=== PATIENT | female | born 2000 | race Caucasian/White ===

== ENCOUNTER 2021-10-08 07:29 | Emergency (ER) | payer MEDICAID, SELFPAY ==
[2021-10-08 07:35] VITALS: BP 127/89; PULSE 75; RESP 16; TEMP 36.2; O2SAT 100
[2021-10-08] MEDS: Ondansetron 4 MG/2 ML VIAL IVP (08:10)
[2021-10-08 08:11] LABS: Abs Immature Grans 0.08 10^3/uL (0.0-0.06); Absolute Basophil Count 0.04 10^3/uL (0.0-0.2); Absolute Monocyte Count 0.84 10^3/uL (0.1-0.8); Basophils % 0.2; HGB 14.5 g/dL (11.2-15.7); Immature Grans % 0.4; MCH 29.4 pg (27.0-33.0); MCHC 32.2 % (32.0-36.0); MCV 91.3 fL (80-95); MPV 12.9 fL (8.0-11.0); Monocytes % 4.2; Neutrophils % 88.2; Platelet Count 222 10^3/uL (130-400); RBC 4.93 10^6/uL (3.93-5.22); RDW 12.8 % (11.7-14.6); RDW-SD 43.3 fL; WBC 20.07 10^3/uL (4.4-10.8)
--- NOTE | 2021-10-08 08:14 | NUR.NOTE ---
Nursing Note: Referral given to Care Management needs PCP, establish care, routine follow up. Nica burns
[2021-10-08] MEDS: Normal Saline 1,000 ML 1000 ML IV ×2 (08:18→09:20)
--- NOTE | 2021-10-08 08:19 | ED.GENADUL_ITS ---
Discharge Plan Disposition Patient Disposition: HOME Condition: Improving Discharge Details Clinical Impression: Abdominal pain, Nausea & vomiting Primary Care Provider: [facility] ED Provider: Frank Swenson Home Meds and New Rx's Prescriptions: New ondansetron 4 mg tablet,disintegrating 4 mg PO TID PRN3 Days Qty: 10 0RF No Action medroxyprogesterone [Depo-Provera] 150 MG/ML suspension 150 mg IM Q3M 0RF Label Comments: has shot about 2 weeks ago Discharge Instructions Instructions: Hypokalemia (ED), Acute Nausea and Vomiting (ED), Abdominal Pain (ED) Additional Instructions: Your work-up today reveals low potassium, and elevated white count, and your CT shows some periportal edema. I do have you placed on the care management list help expedite outpatient primary care follow-up and I have a call out to our surgical team to discuss your case today you have a request to be discharged in the meantime. Zofran as directed. Clear liquid diet, advance as tolerated. You have told me you plan to leave. Diet bananas which can be a nice bland food as well as high in potassium. Please watch for new or worsening symptoms and return to the ER for any concerns. Lastly, I do recommend reaching out to our surgical team tomorrow to discuss your ER visit and need for outpatient r eevaluation Referrals: Deanna Chen DO [OSTEOPATHIC DOCTOR] - Medical Decision Making 21-year-old female, denies significant past medical history, smokes marijuana daily, presents to the ER reporting diffuse abdominal cramping, nausea, vomiting, diarrhea that began around 230 this morning. She reports that she has had similar intermittent episodes over the past 2-3 years and has had multiple visits to both [facility] and [facility] for the same. She denies bad food exposure, recent sick contacts, fever, neck pain, chest pain, shortness of breath, blood in her vomitus, coffee-ground emesis, back pain, vaginal bleeding or discharge, dysuria, hematuria, focal weakness. Clinically she appears well, nontoxic, mucous membranes slightly dry. Abdomen is soft, nontender, certainly nonsurgical. Plan is to obtain IV access, give IV fluids, Zofran, obtain routine screening laboratory values and reassess. Laboratory values reveal leukocytosis of 20.07. While this very well could be secondary to excessive nausea and vomiting, certainly raises suspicion for other etiology. I reviewed her record and did not see any imaging here at our facility. She states that she has been seen multiple times both at [facility] and [facility] but has never had CT imaging. She is agreeable to pursuing CT imaging of her abdomen pelvis today for further evaluation. Potassium of 2.9. Will obtain EKG, give both IV and p.o. potassium. She reports continuation of nausea, will give [address] imaging reveals periportal edema, recommend right upper quadrant ultrasound. Discussed these findings with the patient, she is agreeable to ultrasound. Reports that her nausea had initially improved with the Reglan but now is returning, requesting additional IV medication but also requesting her IV be removed as it is bothering her. She will be given 25 IV Phenergan and we will leave the IV in until she can no longer tolerate it. She denies history of hepatitis, IV drug use. Patient is telling me that this is a very typical presentation for her ongoing abdominal pain, nausea and vomiting. Typically her symptoms are not resolved completely when she presents to the ER, she is to go home, eat bananas, and lay in a hot bath. I do question if there could be some degree of cannabis hyperemesis syndrome but certainly given her leukocytosis, periportal edema, etc. I am concerned about other potential etiologies Ultrasound was obtained, mild hepatomegaly. No evidence of cholelithiasis, biliary ductal dilatation or cholecystitis. 0.2 cm gallbladder polyp. Patient reports general improvement and requesting discharge her IV to be removed. I did discuss my concern with the patient, I have a call out to our surgical team to discuss her overall presentation, but again she is requesting her IV be removed and that she be discharged. Patient is afebrile, abdomen is nonacute appearing, no clear source of infection that would require oral antibiotics. Concern for her overall presentation and need for prompt outpatient follow-up. I have discussed my concerns with the patient, she understands. I have placed her on both the primary care and surgical list to help expedite outpatient follow-up. I received a call back from Dr. Chen, surgery. She to agrees that the patient has a concerning presentation, recommends obtaining a chest x-ray, likely needs outpatient HIDA scan. She understands the patient does not wanting to stay in the ER any longer and because of this is recommending prompt outpatient follow-up in her surgical clinic. I discussed this with the patient, she is unwilling to await a chest x- ray again requesting discharge. She does understand the risks of leaving without completed work-up. Clinically she appears well, hemodynamically stable. She has no additional questions or concerns and once again is requesting discharge. Strict discharge and return precautions were provided. A pre scription for Lucia was also provided This documentation was generated using [employer] system, please disregard any oddities of phrase or misspellings. Medical Records Medical records reviewed: Yes I reviewed the patient's medical records. Imaging Data Radiologic Study: Attestation: I personally reviewed and interpreted this imaging study as follows: Imaging: CT Scan Radiologist's impression: Exam(s) CT ABDOMEN PELVIS W EXAM: CT ABDOMEN PELVIS W CLINICAL HISTORY: abd pain n/v/d, wbc 20 TECHNIQUE: Imaging Protocol: Axial computed tomography images with coronal and sagittal reformatted images were created and reviewed CONTRAST MATERIAL: Intravenous: Omnipaque 350 Contrast volume:100 mL Oral: No COMPARISON: No exams were available for comparison FINDINGS: ABDOMEN: Lung Bases: Normal where visualized. Liver: Normal density. No measurable mass. There is diffuse periportal edema. The liver measures 19.2 cm long. Portal, Superior Mesenteric, and Splenic Veins: Unremarkable. Gallbladder and Biliary Tract: No radiodense calculus or dilation. There is a small amount of fluid seen around the gallbladder. Pancreas: Normal density, no abnormal calcifications or inflammatory process. Spleen: Normal. Adrenals: No masses seen. Kidneys: Normal size, contour and axis. No radiodense stones or obstructive uropathy. No masses seen. Abdominal Aorta: Abdominal portion non-dilated. Bowel: No obstruction or bowel wall thickening. Appendix is unremarkable. Peritoneal Cavity: There is a trace amount of fluid in the pelvis which may be physiologic. No free air. Lymph Nodes: Within normal limits. Bones: Within normal limits for the patient's age. Soft Tissues: Unremarkable. PELVIS: Bladder: Symmetric distention, no gross wall thickening. Reproductive Organs: Unremarkable as visualized. There is an IUD which appears in good position. Lymph Nodes: Within normal limits. Bones: Within normal limits for the patient's age. IMPRESSION: 1. Periportal edema. Differential considerations include hepatitis, cholangitis or possibly acute pyelonephritis. Ultrasound of the right upper quadrant is recommended for further evaluation. 2. Hepatomegaly. 3. Normal appendix. No evidence of nephrolithiasis or hydronephrosis. 4. Results of this exam have been verbally communicated with provider. Radiologic Study #2: Attestation: I personally reviewed and interpreted this imaging study as follows: Imaging: Ultrasound Radiologist's impression: Exam(s) US ABDOMEN LIMITED EXAM: US ABDOMEN LIMITED CLINICAL HISTORY: RUQ, 20 wbc, pain, ? gb disease TECHNIQUE: Ultrasound abdomen performed using standard protocol. COMPARISON: CT CT ABDOMEN PELVIS W from 10/08/2021 FINDINGS: PANCREAS: Normal where visualized. LIVER: Normal. Hepatopedal flow in the Portal Vein. The liver measures in 18.1 length. GALLBLADDER: No evidence of cholelithiasis. No evidence of wall thickening. No pericholecystic fluid identified. There is a 0.2 cm immobile echogenic nodule along the wall of the gallbladder likely reflecting a polyp. BILIARY SYSTEM: Common bile duct measures < 7 mm. No intrahepatic biliary ductal dilation. MCKEON'S SIGN: Negative. RIGHT KIDNEY: Kidney is normal in size. No evidence of renal calculi. No evidence of hydronephrosis. No renal mass or cyst identified. ASCITES: None seen. IMPRESSION: 1. Mild hepatomegaly. 2. No evidence of cholelithiasis, biliary ductal dilatation or acute cholecystitis. 3. 0.2 cm gallbladder polyp. 4. Results of this exam have been verbally communicated with provider. Lab Data Lab results reviewed: Yes I reviewed the patient's lab results. Labs: Laboratory Tests Range/Units 10/08/21 10/08/21 10/08/21 07:46 07:46 09:20 WBC (4.4-10.8) 10^3/uL 20.07 H RBC (3.93-5.22) 10^6/uL 4.93 Hgb (11.2-15.7) g/dL 14.5 Hct (36.0-46.0) % 45.0 MCV (80-95) fL 91.3 MCH (27.0-33.0) pg 29.4 MCHC (32.0-36.0) % 32.2 RDW (11.7-14.6) % 12.8 Plt Count (130-400) 10^3/uL 222 MPV (8.0-11.0) fL 12.9 H Immature Gran % 0.4 Neutrophils % 88.2 Lymphocytes % 7.0 Monocytes % 4.2 Eosinophils % 0.0 Basophils % 0.2 Nucleated RBC % (0.0-0.3) % 0.0 Absolute Neutrophils (1.2-6.7) 10^3/uL 17.70 H Absolute Lymphocytes (1.2-3.4) 10^3/uL 1.40 Absolute Monocytes (0.1-0.8) 10^3/uL 0.84 H Absolute Eosinophils (0.0-0.7) 10^3/uL 0.00 Absolute Basophils (0.0-0.2) 10^3/uL 0.04 Sodium (136-145) mmol/L 139 Potassium (3.5-5.1) mmol/L 2.9 L Chloride (98-107) mmol/L 103 Carbon Dioxide (21.0-32.0) mmol/L 24.5 Anion Gap (3-11) mmol/L 11.5 H BUN (7-18) mg/dL 12 Creatinine (0.55-1.02) mg/dL 1.0 Estimated GFR/1.73 m2 (mL/min/1.73m2) >= 60.00 Glucose (74-106) mg/dL 163 H Calcium (8.5-10.1) mg/dL 8.9 Total Bilirubin (0.2-1.0) mg/dL 0.7 AST (15-37) U/L 13 L ALT (14-59) U/L 21 Alkaline Phosphatase (46-116) U/L 62 Total Protein (6.4-8.2) g/dL 7.5 Albumin (3.4-5.0) g/dL 4.3 Lipase (73-393) U/L 87 Urine Color (Yellow) Yellow Urine Clarity (Clear) Clear Urine pH (5-8) 8.5 H Ur Specific Union (1.005-1.025) 1.020 Urine Protein (Negative) mg/dL Negative Urine Ketones (Negative) mg/dL Negative Urine Blood (Negative) Negative Urine Nitrite (Negative) Negative Urine Bilirubin (Negative) Negative Urine Urobilinogen (Up TO 0.2) EU/dL 0.2 Ur Leukocyte Esterase (Negative) Negative Urine Glucose (Negative) mg/dL Negative ECG Data Attestation: I personally reviewed and interpreted this ECG (s) as follows: Interpretation: Please see official report by Dr. Duran. Sinus bradycardia, ventricular rate of 47, no STEMI. HPI General Mode of arrival: ambulatory . Date/Time Provider Initiated Documentation: 10/08/21 07:56 . Limitations to Documentation: no limitations . Information obtained by: patient . History of Present Illness 21 year old F presents to the emergency department with the chief complaint of abd pain, n/v/d, described as moderate, with intensity rated at 6. Quality is described as other (cramping), and is localized to the abdomen. Patient reports no radiation. Patient started experiencing this hour(s) (6) and it has been constant. improves with No relieving factors improve symptom(s), No exacerbating factors reported . Patient notes nausea/vomiting; denies chest pain, cough, fever/chills, headaches, rash and shortness of breath. Patient did receive the following treatments prior to arrival, none Related Data Home Medications Medication Instructions Recorded Confirmed medroxyprogesterone 150 mg/mL 150 mg IM Q3M 12/05/16 12/05/16 intramuscular suspension (Depo-Provera) ondansetron 4 mg disintegrating 4 mg PO TID PRN 3 Days #10 tab 10/08/21 tablet Previous Rx's Medication Instructions Recorded ondansetron 4 mg disintegrating 4 mg PO TID PRN 3 Days #10 tab 10/08/21 tablet Allergies Allergy/AdvReac Type Severity Reaction Status Date / Time No Known Allergies Allergy Unverified 12/05/16 12:04 General Stated Complaint: Abd Prob ERIK: 3 Review of Systems Constitutional Constitutional: Denies fever(s) and Denies weakness Cardiovascular Cardiovascular: Denies chest pain and Denies dyspnea Respiratory Respiratory: Denies cough and Denies dyspnea Gastrointestinal Gastrointestinal: Reports abdominal pain, Denies melena, Denies hematochezia, Reports constipation, Reports diarrhea, Reports nausea and Reports vomiting Genitourinary Genitourinary: Denies abnormal vaginal bleeding, Denies dysuria and Denies vaginal discharge Musculoskeletal Musculoskeletal: Denies back pain Integumentary/Breasts Skin/Breast: Denies rash Neurologic Neurologic: Denies weakness PFSH All Active Problems (Updated 10/08/21 @ 11:25 by YENI Turner) Abdominal pain (Acute) Nausea & vomiting (Acute) Social History Smoking/Tobacco Use Status: Current every day Tobacco Type: cigarettes Tobacco: How many years used: 3 Smoking risk assessment performed?: Yes Alcohol Intake: current Alcohol Intake frequency: a few times a month Alcohol type: beer, wine and hard liquor Drug use: Daily Substance use type: marijuana Do you feel safe at home: Yes Do you feel safe in your relationship?: Yes Exam Const General: cooperative, healthy appearing, comfortable, no acute distress and other (Occasional dry heave) Orientation: alert and awake [facility] Head: normal to inspection, normocephalic and atraumatic Mouth: moist mucous membranes abnormal (Slightly dry) Eyes General: appearance normal, both eyes and all related structures Conjunctivae: conjunctivae normal Neck Neck: normal visual inspection, full ROM, meningismus present, trachea midline and supple Resp Effort & Inspection: normal respiratory effort and able to speak in complete sentences Auscultation: clear to auscultation bilaterally Cardio Rate: regular rate Rhythm: regular rhythm GI Inspection: normal to inspection Palpation: soft, not firm, no guarding, no pulsatile masses and nontender Auscultation: normal bowel sounds Back/Spine/Pelvis Back: No back tenderness Skin General skin exam: no rashes or lesions noted Neuro General: patient alert, patient awake, moves all extremities and no focal motor deficits Cognition: normal cognition Speech: speech normal Gait: normal gait Sensory Exam: no sensory deficits noted Psych Appearance: grossly normal Mental Status: mental status grossly normal Course Vital Signs Vital signs: Vital Signs Temperature 36.2 C L 10/08/21 07:35 Pulse 75 10/08/21 07:35 Respiratory Rate 16 10/08/21 07:35 Blood Pressure 127/89 10/08/21 07:35 Pulse Oximetry 100 10/08/21 07:35 Temperature 36.2 C L 10/08/21 07:35 Pulse 75 10/08/21 07:35 Respiratory Rate 16 10/08/21 07:35 Respiratory Effort 10/08/21 07:41 Blood Pressure 127/89 10/08/21 07:35 Pulse Oximetry 100 10/08/21 07:35 Oxygen Delivery Method Room Air 10/08/21 07:35 Oxygen Flow Rate 0 10/08/21 07:35 Pain Level 10 10/08/21 08:10 Lab/Test Results Lab/Test Results: Laboratory Tests Range/Units 10/08/21 07:46 WBC (4.4-10.8) 10^3/uL 20.07 H RBC (3.93-5.22) 10^6/uL 4.93 Hgb (11.2-15.7) g/dL 14.5 Hct (36.0-46.0) % 45.0 MCV (80-95) fL 91.3 MCH (27.0-33.0) pg 29.4 MCHC (32.0-36.0) % 32.2 RDW (11.7-14.6) % 12.8 Plt Count (130-400) 10^3/uL 222 MPV (8.0-11.0) fL 12.9 H Immature Gran % 0.4 Neutrophils % 88.2 Lymphocytes % 7.0 Monocytes % 4.2 Eosinophils % 0.0 Basophils % 0.2 Nucleated RBC % (0.0-0.3) % 0.0 Absolute Neutrophils (1.2-6.7) 10^3/uL 17.70 H Absolute Lymphocytes (1.2-3.4) 10^3/uL 1.40 Absolute Monocytes (0.1-0.8) 10^3/uL 0.84 H Absolute Eosinophils (0.0-0.7) 10^3/uL 0.00 Absolute Basophils (0.0-0.2) 10^3/uL 0.04
[2021-10-08 08:22] LABS: ALT 21 U/L (14-59); AST 13 U/L (15-37); Albumin 4.3 g/dL (3.4-5.0); Alkaline Phosphatase 62 U/L (46-116); Anion Gap 11.5 mmol/L (3-11); BUN 12 mg/dL (7-18); Bilirubin, Total 0.7 mg/dL (0.2-1.0); CO2 24.5 mmol/L (21.0-32.0); Calcium 8.9 mg/dL (8.5-10.1); Chloride 103 mmol/L (98-107); Glucose 163 mg/dL (74-106); Lipase 87 U/L (73-393); Sodium 139 mmol/L (136-145); Total Protein 7.5 g/dL (6.4-8.2)
[2021-10-08 08:29] LABS: Potassium 2.9 mmol/L (3.5-5.1)
--- NOTE | 2021-10-08 08:30 | RT.EKG_ITS ---
APPROVED REPORT Exam: Resting ECG Reason for Exam: Hypokalemia Patient Location: E HR:47 bpm ECG Measurements Heart Rate 47 AXIS OH 149 P 80 QRSd 78 QRS 83 QT 474 T 83 QTc 418 Conclusion Sinus bradycardia...rate< 60
[2021-10-08 08:36] VITALS: BP 109/97; PULSE 68; TEMP 36.3; O2SAT 100
[2021-10-08] MEDS: POTASSIUM CHLORIDE 10 MEQ/100 ML BAG 100 MEQ IVPB (08:42)
[2021-10-08] MEDS: Potassium Chloride 20 MEQ TABCR 40 MEQ PO (08:43)
--- NOTE | 2021-10-08 08:45 | DI.CT_ITS ---
Exam(s) CT ABDOMEN PELVIS W EXAM: CT ABDOMEN PELVIS W CLINICAL HISTORY: abd pain n/v/d, wbc 20 TECHNIQUE: Imaging Protocol: Axial computed tomography images with coronal and sagittal reformatted images were created and reviewed CONTRAST MATERIAL: Intravenous: Omnipaque 350 Contrast volume:100 mL Oral: No COMPARISON: No exams were available for comparison FINDINGS: ABDOMEN: Lung Bases: Normal where visualized. Liver: Normal density. No measurable mass. There is diffuse periportal edema. The liver measures 19. 2 cm long. Portal, Superior Mesenteric, and Splenic Veins: Unremarkable. Gallbladder and Biliary Tract: No radiodense calculus or dilation. There is a small amount of fluid s een around the gallbladder. Pancreas: Normal density, no abnormal calcifications or inflammatory process. Spleen: Normal. Adrenals: No masses seen. Kidneys: Normal size, contour and axis. No radiodense stones or obstructive uropathy. No masses seen. Abdominal Aorta: Abdominal portion non-dilated. Bowel: No obstruction or bowel wall thickening. Appendix is unremarkable. Peritoneal Cavity: There is a trace amount of fluid in the pelvis which may be physiologic. No free air. Lymph Nodes: Within normal limits. Bones: Within normal limits for the patient's age. Soft Tissues: Unremarkable. PELVIS: Bladder: Symmetric distention, no gross wall thickening. Reproductive Organs: Unremarkable as visualized. There is an IUD which appears in good position. Lymph Nodes: Within normal limits. Bones: Within normal limits for the patient's age. IMPRESSION: 1. Periportal edema. Differential considerations include hepatitis, cholangitis or possibly acute py elonephritis. Ultrasound of the right upper quadrant is recommended for further evaluation. 2. Hepatomegaly. 3. Normal appendix. No evidence of nephrolithiasis or hydronephrosis. 4. Results of this exam have been verbally communicated with provider. RADIATION DOSE DELIVERED: 858.16mGy.cm Total DLP DATA REPOSITORY: All CT scans at this facility are submitted to the National Radiology Data Registry (NRDR) Dose Index Registry (DIR) with the [employer] (ACR). RADIATION OPTIMIZATION: All CT scans at this facility use at least one of these dose optimization te chniques: automated exposure control; mA and/or kV adjustment per patient size (includes targeted exa ms where dose is matched to clinical indication); or iterative reconstruction.
[2021-10-08] MEDS: Metoclopramide 10 MG/2 ML VIAL IVP (08:56)
[2021-10-08 09:30] LABS: Bilirubin Negative (Negative); Blood Negative (Negative); Clarity Clear (Clear); Glucose Negative (Negative); Ketones Negative (Negative); Leukocyte Esterase Negative (Negative); Nitrite Negative (Negative); Urobilinogen 0.2 EU/dL (Up TO 0.2); pH 8.5 (5-8)
[2021-10-08] MEDS: Omnipaque 350 MG/ML 100 ML BTL IJ (09:42)
--- NOTE | 2021-10-08 10:00 | DI.US_ITS ---
Exam(s) US ABDOMEN LIMITED EXAM: US ABDOMEN LIMITED CLINICAL HISTORY: RUQ, 20 wbc, pain, ? gb disease TECHNIQUE: Ultrasound abdomen performed using standard protocol. COMPARISON: CT CT ABDOMEN PELVIS W from 10/08/2021 FINDINGS: PANCREAS: Normal where visualized. LIVER: Normal. Hepatopedal flow in the Portal Vein. The liver measures in 18.1 length. GALLBLADDER: No evidence of cholelithiasis. No evidence of wall thickening. No pericholecystic fluid identified. There is a 0.2 cm immobile echogenic nodule along the wall of the gallbladder likely refl ecting a polyp. BILIARY SYSTEM: Common bile duct measures < 7 mm. No intrahepatic biliary ductal dilation. MCKEON'S SIGN: Negative. RIGHT KIDNEY: Kidney is normal in size. No evidence of renal calculi. No evidence of hydronephrosis. No renal mass or cyst identified. ASCITES: None seen. IMPRESSION: 1. Mild hepatomegaly. 2. No evidence of cholelithiasis, biliary ductal dilatation or acute cholecystitis. 3. 0.2 cm gallbladder polyp. 4. Results of this exam have been verbally communicated with provider. DATA REPOSITORY:
[2021-10-08 10:32] VITALS: BP 131/93; PULSE 76; RESP 16; TEMP 36.5; O2SAT 98
[2021-10-08 11:21] VITALS: BP 128/82; PULSE 69; RESP 16; TEMP 36.6; O2SAT 98
[2021-10-08 11:38] VITALS: BP 128/82; PULSE 69; RESP 16; TEMP 36.6; O2SAT 98
--- NOTE | 2021-10-08 12:03 | NUR.NOTE ---
Nursing Note: [facility] for abd pain, periportal edema, if possible by end of the week. Consulted with Dr Chen. Ella Liang
[2021-10-09 11:33] LABS: Hepatitis A Antibody IgM Negative (Negative); Hepatitis B Core Antibody Negative (Negative); Hepatitis B surface Ag Negative (Negative); Hepatitis C Ab w Rflx HCV PCR Negative (Negative)
== END 2021-10-08 11:41 | disposition home or self-care (01) ==
PROVIDERS: Emergency Provider Physician Assistant; PCP Pediatrics
DX: R11.2 Nausea with vomiting, unspecified (principal); R10.9 Unspecified abdominal pain; R19.7 Diarrhea, unspecified; D72.829 Elevated white blood cell count, unspecified; R16.0 Hepatomegaly, not elsewhere classified; Z53.29 Procedure and treatment not carried out because of patient's decision for other reasons
CPT/HCPCS: 36415; 80053; 81025; 83690; 86704; 86709; 86803; 87340; 93005; 96361; 96365; 96367; 96375; 99285; 74177; 76705; 81003; 85025; 93010; 99284; J2405; J2765; J3480; J3490

== ENCOUNTER → 2021-10-25 00:47 | Outpatient (CLI) | payer MEDICAID, SELFPAY | PROVIDERS: PCP Pediatrics; Visit Provider Surgery ==

== ENCOUNTER 2022-10-20 19:04 | Emergency (ER) | payer MEDICAID, SELFPAY ==
--- NOTE | 2022-10-20 19:15 | DI.RAD_ITS ---
Exam(s) XR HAND RT COMPLETE EXAM: XR HAND RT COMPLETE CLINICAL HISTORY: 5th mcp injury, fall. TECHNIQUE: 2D digital imaging was performed. COMPARISON: No exams were available for comparison FINDINGS: 3 views There is an acute oblique fracture in the proximal aspect base the 5th metacarpal. The fracture line approaches the articular surface of the articulation between the base of the 5th metacarpal and the hamate. No other fractures identified. No osseous lesions. No radiopaque foreign body. There is s ome overlying soft tissue swelling. IMPRESSION: Acute oblique fracture through the proximal diaphysis/base of the 5th metacarpal. Mild displacement. DATA REPOSITORY: RADIATION DOSE DELIVERED:
[2022-10-20 19:16] VITALS: BP 105/71; PULSE 67; RESP 16; TEMP 36.6; O2SAT 97
--- NOTE | 2022-10-20 20:06 | W.ED.GENAD ---
Discharge Plan Disposition Patient Disposition: Home Discharge Details Clinical Impression: Boxer's fracture Primary Care Provider: None,None ED Provider: Paris Ramos Home Meds and New Rx's Prescriptions: Continued medroxyprogesterone [Depo-Provera] 150 MG/ML suspension 150 mg IM Q3M Patient Comments: has shot about 2 weeks ago Discharge Instructions Additional Instructions: Please take care of the splint to keep it dry, follow-up with orthopedics Ibuprofen and Tylenol as needed for pain Ice as needed, elevation when you are at rest Return earlier should you have new or worsening complaints Referrals: Alonso Contreras MD [ [facility] STAFF PHYSICIAN] - Medical Decision Making 22-year-old female presents with right hand injury, fifth metacarpal fracture noted approximately, angulated Ortho-Glass splint applied Motrin Tylenol as needed for pain Orthopedic referral supplied Return precautions reviewed and patient expressed understanding HPI General Date/Time Provider Initiated Documentation: 10/20/22 19:26. HPI Narrative: This 22-year-old female presents with report of right hand injury. She reportedly tripped walking the dog yesterday, landing on her right hand. Denies any additional injuries. States it swollen and the pain has been persistent since onset. Denies any additional injuries. Related Data Home Medications Medication Instructions Recorded Confirmed medroxyprogesterone 150 mg/mL 150 mg IM Q3M 12/05/16 10/20/22 intramuscular suspension (Depo-Provera) Allergies Allergy/AdvReac Type Severity Reaction Status Date / Time No Known Allergies Allergy Unverified 10/20/22 19:19 General Stated Complaint: Orthopedic ERIK: 4 PFSH All Active Problems (Updated 10/20/22 @ 20:08 by YENI Sanders) Boxer's fracture (Acute) Social History Smoking/Tobacco Use Status: Current every day Tobacco Type: cigarettes Tobacco: How many years used: 3 Smoking risk assessment performed?: Yes Alcohol Intake: current Alcohol Intake frequency: a few times a month Alcohol type: beer, wine and hard liquor Drug use: Daily Substance use type: marijuana Do you feel safe at home: Yes Do you feel safe in your relationship?: Yes Course Right hand with swelling and deformity noted overlying the dorsal aspect on the fifth metacarpal, neurovascularly intact, no tenderness to wrist Vital Signs Vital signs: Vital Signs Temperature 36.6 C 10/20/22 19:16 Pulse 67 10/20/22 19:16 Respiratory Rate 16 10/20/22 19:16 Blood Pressure 105/71 10/20/22 19:16 Pulse Oximetry 97 10/20/22 19:16 Temperature 36.6 C 10/20/22 19:16 Temperature Source Oral 10/20/22 19:16 Pulse 67 10/20/22 19:16 Respiratory Rate 16 10/20/22 19:16 Respiratory Effort Normal, Non-Labored 10/20/22 19:19 Blood Pressure 105/71 10/20/22 19:16 Blood Pressure Position Sitting 10/20/22 19:16 Pulse Oximetry 97 10/20/22 19:16 Oxygen Delivery Method Room Air 10/20/22 19:16 Oxygen Flow Rate 0 10/20/22 19:16 Pain Level 10 10/20/22 19:20 Comment 03/24 when she bumps it. 10/20/22 19:16 Procedures Orthopedic Splinting/Casting Injury #1: Additional Comments: Ulnar gutter 3 inch splint was applied with Ortho-Glass without incident, neurovascularly intact pre and postprocedure
--- NOTE | 2022-10-20 20:16 | DI.VRAD_ITS ---
PROCEDURE INFORMATION: Exam: XR Right Hand Exam date and time: 10/20/2022 7:43 PM Age: 22 years old Clinical indication: Other: 5th mcp injury, fall TECHNIQUE: Imaging protocol: Radiologic exam of the right hand. Views: 3 or more views. COMPARISON: No relevant prior studies available. FINDINGS: Bones/joints: There is an oblique acute fracture through the proximal shaft and base of the right 5th metacarpal. No additional acute fracture or dislocation is seen in the right hand. Soft tissues: There is mild soft tissue swelling along the ulnar margin of the hand. IMPRESSION: Acute oblique fracture through the proximal shaft and base of the right 5th metacarpal. Dictated and Authenticated by: Jaguar Boyer MD. Ordering:ANNABEL Toledo MD
== END 2022-10-20 20:15 | disposition home or self-care (01) ==
PROVIDERS: Emergency Provider Physician Assistant
DX: S62.336A Displaced fracture of neck of fifth metacarpal bone, right hand, initial encounter for closed fracture (principal); W01.0XXA Fall on same level from slipping, tripping and stumbling without subsequent striking against object, initial encounter; Y93.K1 Activity, walking an animal
CPT/HCPCS: 29125; 99283; 73130

== ENCOUNTER 2022-10-30 09:16 | Outpatient (CLI) | payer MEDICAID, SELFPAY ==
--- NOTE | 2022-10-30 08:30 | DI.RAD_ITS ---
Exam(s) XR HAND RT COMPLETE EXAM: XR HAND RT COMPLETE CLINICAL HISTORY: f/u Left 5th metacarpal fx. TECHNIQUE: 2D digital imaging was performed of the right hand. Three images were obtained. AP, late ral and oblique views were obtained. COMPARISON: CR,XR XR HAND RT COMPLETE from 10/20/2022 FINDINGS: BONES: There has been no change in alignment of the fracture involving the proximal right 5th metacar pal. The fracture line is still visualized. No new fracture is seen. No bony destructive lesion is seen. JOINTS: No dislocation present. SOFT TISSUE: Normal. IMPRESSION: Stable 5th metacarpal fracture. DATA REPOSITORY: RADIATION DOSE DELIVERED:
== END 2022-10-30 09:17 | disposition home or self-care (01) ==
LOC: DIORS 09:17
PROVIDERS: Visit Provider Physician Assistant
DX: S62.336D Displaced fracture of neck of fifth metacarpal bone, right hand, subsequent encounter for fracture with routine healing (principal); X58.XXXD Exposure to other specified factors, subsequent encounter
CPT/HCPCS: 73130

== ENCOUNTER 2022-11-28 09:06 | Outpatient (CLI) | payer MEDICAID, SELFPAY ==
--- NOTE | 2022-11-28 08:15 | DI.RAD_ITS ---
Exam(s) XR WRIST RT COMPLETE EXAM: XR WRIST RT COMPLETE CLINICAL HISTORY: RIGHT WRIST PAIN. TECHNIQUE: 2D digital imaging was performed. COMPARISON: No exams were available for comparison FINDINGS: 3 views No evidence of fracture nor dislocation wrist.. No significant ulnar variance. No osseous lesions. Bone density normal. More distally there is fracture in the proximal aspect of the 5th metacarpal noted. See separate rep ort. IMPRESSION: Fracture again noted at the proximal aspect of the 5th metacarpal. DATA REPOSITORY: RADIATION DOSE DELIVERED:
--- NOTE | 2022-11-28 08:15 | DI.RAD_ITS ---
Exam(s) XR HAND RT COMPLETE EXAM: XR HAND RT COMPLETE CLINICAL HISTORY: f/u R BOXER'S FRACTURE. TECHNIQUE: 2D digital imaging was performed. COMPARISON: CR XR HAND RT COMPLETE from 10/30/2022 FINDINGS: 3 views Again noted is the comminuted appearing fracture in the proximal half of the 5th metacarpal. Fractur e lines are still evident but there does not appear to be significant further displacement. No addit ional fractures identified. IMPRESSION: As above. DATA REPOSITORY: RADIATION DOSE DELIVERED:
== END 2022-11-28 09:07 | disposition home or self-care (01) ==
LOC: DIORS 09:07
PROVIDERS: Visit Provider Physician Assistant
DX: S62.316D Displaced fracture of base of fifth metacarpal bone, right hand, subsequent encounter for fracture with routine healing (principal); M25.531 Pain in right wrist; X58.XXXD Exposure to other specified factors, subsequent encounter; W01.0XXD Fall on same level from slipping, tripping and stumbling without subsequent striking against object, subsequent encounter
CPT/HCPCS: 73110; 73130

== ENCOUNTER 2023-01-05 08:46 | Outpatient (CLI) | payer SELFPAY ==
--- NOTE | 2023-01-05 08:30 | DI.RAD_ITS ---
Exam(s) XR HAND RT COMPLETE EXAM: XR HAND RT COMPLETE CLINICAL HISTORY: F/U FRACTURE. TECHNIQUE: 2D digital imaging was performed of the right hand. Three images were obtained. AP, late ral and oblique views were obtained. COMPARISON: CR XR HAND RT COMPLETE from 11/28/2022 FINDINGS: BONES: There has been no change in alignment of the healing fracture of the proximal 5th metacarpal. No new fracture is seen. No bony destructive lesion is seen. JOINTS: No dislocation present. SOFT TISSUE: Normal. IMPRESSION: Stable healing 5th metacarpal fracture. DATA REPOSITORY: RADIATION DOSE DELIVERED:
== END 2023-01-05 08:47 | disposition home or self-care (01) ==
LOC: DIORS 08:47
PROVIDERS: Visit Provider Student in an Organized Health Care Education/Training Program
DX: S62.316D Displaced fracture of base of fifth metacarpal bone, right hand, subsequent encounter for fracture with routine healing (principal); W01.0XXD Fall on same level from slipping, tripping and stumbling without subsequent striking against object, subsequent encounter; X58.XXXD Exposure to other specified factors, subsequent encounter
CPT/HCPCS: 73130

== ENCOUNTER 2023-01-21 10:49 | Emergency (ER) | payer SELFPAY ==
[2023-01-21] VITALS (10 sets, daily range): BP systolic 126–140; BP diastolic 82–88; PULSE 43–79; RESP 8–20; TEMP 36.8; O2SAT 95–100
[2023-01-21] MEDS: Normal Saline 1,000 ML 1000 ML IV (11:18)
[2023-01-21] MEDS: Ondansetron 4 MG/2 ML VIAL IVP (11:19)
[2023-01-21 11:24] LABS: Abs Immature Grans 0.09 10^3/uL (0.0-0.06); Absolute Basophil Count 0.04 10^3/uL (0.0-0.2); Absolute Lymphocyte Count 1.19 10^3/uL (1.2-3.4); Basophils % 0.2; HCT 44.1 % (36.0-46.0); HGB 15.2 g/dL (11.2-15.7); Immature Grans % 0.4; Lymphocytes % 5.8; MCHC 34.5 % (32.0-36.0); MCV 87 fL (80-95); MPV 11.4 fL (8.0-11.0); Monocytes % 3.2; Neutrophils % 90.4; Platelet Count 264 10^3/uL (130-400); RBC 5.07 10^6/uL (3.93-5.22); RDW 13.3 % (11.7-14.6); RDW-SD 42.1 fL; WBC 20.46 10^3/uL (4.4-10.8)
--- NOTE | 2023-01-21 11:25 | ED.GENADUL_ITS ---
Discharge Plan Disposition Patient Disposition: Home Discharge Details Clinical Impression: Cyclical vomiting, Pityriasis rosea-like skin eruption, Hypomagnesemia, Hypokalemia Primary Care Provider: None,None ED Provider: Michelle Duke Home Meds and New Rx's Prescriptions: New cyclobenzaprine 10 mg tablet 10 mg PO TID PRN (Reason: muscle spasm) Qty: 7 0RF Rx Instructions: Take 1 tablet orally up to 3 times daily as needed for muscle spasm. cephalexin 500 mg tablet 500 mg PO BID 5 Days Qty: 10 0RF No Action Mirena 21 mcg/24 hours (8 yrs) 52 mg intrauterine device 1 device intrauterine ONCE Rx Instructions: as a single dose Discharge Instructions Instructions: Hypokalemia (ED), Hypomagnesemia (ED), Hematemesis (ED) Additional Instructions: The rash on your chest and back may be something called pityriasis rosea, you may try [id number] remedies for this. You have been placed on a care management list to establish care with primary care provider. Your potassium and your magnesium were slightly low today. You were given magnesium in the IV and p.o. potassium. Please consider taking a multivitamin daily. Follow up with primary care provider in 3-5 days. Return to ED sooner if any worsening or concerns. Increase oral fluids. Take the nausea medications as directed up to 3 times daily as needed 20 to 30 minutes prior to eating or drinking anything. You do have a high white blood cell count which was also the case approximately a year ago. Please discuss this with primary care. CT was within normal limits. You may also have a urinary tract infection. Please take the antibiotic as directed with yogurt or probiotic daily. Discharge Data Discharge Date/Time-TO BE ENTERED AT DEPARTURE: 01/21/23 15:55 Medical Decision Making 22-year-old female presents to the ER with a chief complaint of nausea vomiting and periumbilical abdominal pain since 930 last night. She reports that this occurs every few months. She does smoke daily marijuana, she has also has an aversion to food, is also complaining of some anxiety, and she does have a maculopapular nonpruritic rash noted to her chest and back which occurs with sweating and heat. She does not have a PCP she does have an IUD. Patient does have leukocytosis white blood cell count of 20.46 which was the same approximately a year ago, positive left shift absolute neutrophils 18.50, lymphocytes 1.9, potassium 3.4, anion gap 13.3 glucose 138 magnesium 1.4 which was replaced with a gram of mag IV. Urinalysis shows trace ketones leukocytes, 3-5 WBCs, culture is pending at this time. UDS shows positive for THC. Will give p.o. trial with p.o. potassium and expected disposition discharge placed on the care management list to establish PCP. Patient remains afebrile nontachycardic. Patient tolerated p.o. trial without difficulty no more emesis noted. On patient reevaluation she reports she feels much better. I did stress the importance of following up with PCP and I also did express my concerns about eating disorder which she agrees with. Instructions were given to take a multivitamin was given Zofran to go she verbalized understanding. Remained hemodynamically stable throughout the entire stay. This text was generated using [employer] dictation system, please disregard any oddities of phrase or misspellings. Medical Records Medical records reviewed: Yes I reviewed the patient's medical records. Imaging Data Radiologic Study: Imaging: CT Scan Radiologist's impression: COMPARISON:? CT CT ABDOMEN ? PELVIS W from 10/08/2021 FINDINGS: ABDOMEN: Lung Bases: Normal where visualized. Liver: Normal density. No measurable mass. Gallbladder and biliary tract: No radiodense calculus or dilation.? Pancreas: Normal density, no abnormal calcifications or inflammatory process. Spleen: Normal. Kidneys: Normal size, contour and axis. No radiodense stones or obstructive uropathy. No suspicious masses seen. Adrenal glands: No masses seen. Abdominal Aorta: Abdominal portion non-dilated. Soft tissues: Unremarkable. PELVIS:? Bladder:? No gross wall thickening. No calculi.No focal mass. Bowel: No obstruction. ? No bowel wall thickening. Appendix normal.? Normal quantity of stool. Peritoneal cavity: No ascites, collection or mesenteric inflammatory response. Bones: Unremarkable for age.? Reproductive organs: IUD noted.? Lymph nodes: Unremarkable.? Impression: Unremarkable CT scan of the abdomen and pelvis. Lab Data Lab results reviewed: Yes I reviewed the patient's lab results. Labs: 01/21/23 12:55 Urine - Reflex from Ua Urine Culture - Pending Laboratory Tests Range/Units 01/21/23 01/21/2301/21/23 11:15 11:15 12:55 WBC (4.4-10.8) 10^3/uL 20.46 H RBC (3.93-5.22) 10^6/uL 5.07 Hgb (11.2-15.7) g/dL 15.2 Hct (36.0-46.0) % 44.1 MCV (80-95) fL 87 MCH (27.0-33.0) pg 30.0 MCHC (32.0-36.0) % 34.5 RDW (11.7-14.6) % 13.3 Plt Count (130-400) 10^3/uL 264 MPV (8.0-11.0) fL 11.4 H Immature Gran % 0.4 Neutrophils % 90.4 Lymphocytes % 5.8 Monocytes % 3.2 Eosinophils % 0.0 Basophils % 0.2 Nucleated RBC % (0.0-0.3) % 0.0 Absolute Neutrophils (1.2-6.7) 10^3/uL 18.50 H Absolute Lymphocytes (1.2-3.4) 10^3/uL 1.19 L Absolute Monocytes (0.1-0.8) 10^3/uL 0.65 Absolute Eosinophils (0.0-0.7) 10^3/uL 0.00 Absolute Basophils (0.0-0.2) 10^3/uL 0.04 Sodium (136-145) mmol/L 140 Potassium (3.5-5.1) mmol/L 3.4 L Chloride (98-107) mmol/L 104 Carbon Dioxide (21.0-32.0) mmol/L 22.7 Anion Gap (3-11) mmol/L 13.3 H BUN (7-18) mg/dL 10 Creatinine (0.55-1.02) mg/dL 0.8 Est GFR (CKD-EPI 2020) (mL/min/1.73m2) 106.11 Glucose (74-106) mg/dL 138 H Calcium (8.5-10.1) mg/dL 9.4 Magnesium (1.8-2.4) mg/dL 1.4 L Total Bilirubin (0.2-1.0) mg/dL 1.0 AST (15-37) U/L 23 ALT (14-59) U/L 27 Alkaline Phosphatase (46-116) U/L 71 Total Protein (6.4-8.2) g/dL 8.3 H Albumin (3.4-5.0) g/dL 4.8 Urine Color (Yellow) Urine Clarity (Clear) Urine pH (5-8) Ur Specific [place] (1.005-1.025) Urine Protein (Negative) mg/dL Urine Ketones (Negative) mg/dL Urine Blood (Negative) Urine Nitrite (Negative) Urine Bilirubin (Negative) Urine Urobilinogen (Up to 0.2) mg/dL Ur Leukocyte Esterase (Negative) Urine RBC (0-2) HPF Urine WBC (0-5) HPF Ur Epithelial Cells (Negative) HPF Urine Crystals (Negative) HPF Urine Bacteria (Negative) HPF Urine Casts (Negative) LPF Urine Mucus (Negative) Ur Culture Indicated? Urine Glucose (Negative) mg/dL Urine Opiates Screen (Negative) Negative Urine Methadone Screen (Negative) Negative Ur Barbiturates Screen (Negative) Negative Ur Tricyclics Screen (Negative) Negative Ur Amphetamines Screen (Negative) Negative U Benzodiazepines Scrn (Negative) Negative Urine Cocaine Screen (Negative) Negative Ur THC Screen (Negative) Positive A Ethyl Alcohol (<10) mg/dL < 3.0 Range/Units 01/21/23 12:55 WBC (4.4-10.8) 10^3/uL RBC (3.93-5.22) 10^6/uL Hgb (11.2-15.7) g/dL Hct (36.0-46.0) % MCV (80-95) fL MCH (27.0-33.0) pg MCHC (32.0-36.0) % RDW (11.7-14.6) % Plt Count (130-400) 10^3/uL MPV (8.0-11.0) fL Immature Gran % Neutrophils % Lymphocytes % Monocytes % Eosinophils % Basophils % Nucleated RBC % (0.0-0.3) % Absolute Neutrophils (1.2-6.7) 10^3/uL Absolute Lymphocytes (1.2-3.4) 10^3/uL Absolute Monocytes (0.1-0.8) 10^3/uL Absolute Eosinophils (0.0-0.7) 10^3/uL Absolute Basophils (0.0-0.2) 10^3/uL Sodium (136-145) mmol/L Potassium (3.5-5.1) mmol/L Chloride (98-107) mmol/L Carbon Dioxide (21.0-32.0) mmol/L Anion Gap (3-11) mmol/L BUN (7-18) mg/dL Creatinine (0.55-1.02) mg/dL Est GFR (CKD-EPI 2020) (mL/min/1.73m2) Glucose (74-106) mg/dL Calcium (8.5-10.1) mg/dL Magnesium (1.8-2.4) mg/dL Total Bilirubin (0.2-1.0) mg/dL AST (15-37) U/L ALT (14-59) U/L Alkaline Phosphatase (46-116) U/L Total Protein (6.4-8.2) g/dL Albumin (3.4-5.0) g/dL Urine Color (Yellow) Yellow Urine Clarity (Clear) Clear Urine pH (5-8) 7.0 Ur Specific [place] (1.005-1.025) 1.015 Urine Protein (Negative) mg/dL 100 H Urine Ketones (Negative) mg/dL 80 H Urine Blood (Negative) Negative Urine Nitrite (Negative) Negative Urine Bilirubin (Negative) Negative Urine Urobilinogen (Up to 0.2) mg/dL 0.2 Ur Leukocyte Esterase (Negative) Trace H Urine RBC (0-2) HPF Negative Urine WBC (0-5) HPF 3-5 Ur Epithelial Cells (Negative) HPF Few Urine Crystals (Negative) HPF Negative Urine Bacteria (Negative) HPF Rare Urine Casts (Negative) LPF 0-2 Hyaline Urine Mucus (Negative) Negative Ur Culture Indicated? Yes Urine Glucose (Negative) mg/dL Negative Urine Opiates Screen (Negative) Urine Methadone Screen (Negative) Ur Barbiturates Screen (Negative) Ur Tricyclics Screen (Negative) Ur Amphetamines Screen (Negative) U Benzodiazepines Scrn (Negative) Urine Cocaine Screen (Negative) Ur THC Screen (Negative) Ethyl Alcohol (<10) mg/dL HPI General Mode of arrival: ambulatory . Date/Time Provider Initiated Documentation: 01/21/23 11:00 . Limitations to Documentation: no limitations . Information obtained by: patient, RN notes reviewed and old records reviewed . HPI Narrative: 22-year-old female presents to the ER with a chief complaint of nausea vomiting and periumbilical abdominal pain since 930 last night. She reports that this occurs every few months. She does smoke daily marijuana, she has also has an aversion to food, is also complaining of some anxiety, and she does have a maculopapular nonpruritic rash noted to her chest and back which occurs with sweating and heat. She does not have a PCP she does have an IUD. Related Data Home Medications Medication Instructions Recorded Confirmed levonorgestrel 21 mcg/24 hours (8 1 device intrauterine ONCE 10/30/22 01/21/23 yrs) 52 mg intrauterine device (Mirena) cephalexin 500 mg tablet 500 mg PO BID 5 days #10 tabs 01/21/23 cyclobenzaprine 10 mg tablet 10 mg PO TID PRN muscle spasm #7 01/21/23 tabs Previous Rx's Medication Instructions Recorded cephalexin 500 mg tablet 500 mg PO BID 5 days #10 tabs 01/21/23 cyclobenzaprine 10 mg tablet 10 mg PO TID PRN muscle spasm #7 01/21/23 tabs Allergies Allergy/AdvReac Type Severity Reaction Status Date / Time No Known Allergies Allergy Unverified 01/21/23 10:55 General Stated Complaint: Nausea/Vomit/Diar ERIK: 3 Review of Systems All systems reviewed & are unremarkable except as noted in HPI and below Gastrointestinal Gastrointestinal: Reports as per HPI, Reports abdominal pain, Reports nausea and Reports vomiting Genitourinary Genitourinary: Denies dysuria Integumentary/Breasts Skin/Breast: Reports erythema and Reports rash (Occurs with Sweating) PFSH All Active Problems (Updated 01/21/23 @ 15:04 by Michelle Duke NP) Cyclical vomiting (Acute) Pityriasis rosea-like skin eruption (Acute) Hypomagnesemia (Acute) Hypokalemia (Acute) Social History Smoking/Tobacco Use Status: Current every day Tobacco Type: cigarettes Tobacco: How many years used: 3 Smoking risk assessment performed?: Yes Alcohol Intake: current Alcohol Intake frequency: a few times a month Alcohol type: beer, wine and hard liquor Drug use: Daily Substance use type: marijuana Do you feel safe at home: Yes Do you feel safe in your relationship?: Yes Female Reproductive History Menstrual control method: progestin IUCD Exam Narrative Exam Narrative: Constitutional: Alert and oriented x3. Appears stated age. Thin body habitus. Head: Normocephalic, no trauma. Eyes: Pupils PERRL, Red reflex noted, EOM's intact. Eyelids symmetrical without lesions, discharge, or swelling. ENT: Bilateral TM's WNL, External ear normal to inspection, no mastoid TTP, swelling, or erythema, Nasal turbinates WNL, no nasal discharge. Normal dentition, Posterior pharynx WNL, no exudate. Chest: RRR, Normal S1, S2, distal pulses intact. Resp: Lungs clear to auscultation bilaterally, no wheezes, rales, or rhonchi. Abdomen: Soft, non-distended, Normoactive bowel sounds all 4 quads. Musculoskeletal: Normal gait, 5/5 strength to all four extremities. Skin: No suspicious rashes or lesions. Capillary refill less than 2 sec. Neurologic: Cranial nerves II-XII intact. Alert and oriented x 3. Motor: No deficits noted. Sensory: Intact bilaterally all 4 extremities. Reflexes: DTR's intact bilaterally.. Hematologic/Lymphatic: No ecchymosis, no lymphadenopathy. Course Vital Signs Vital signs: Vital Signs Temperature 36.8 C 01/21/23 10:52 Pulse 79 01/21/23 10:52 Respiratory Rate 16 01/21/23 10:52 Blood Pressure 140/88 01/21/23 10:52 Pulse Oximetry 100 01/21/23 10:52 Temperature 36.8 C 01/21/23 10:52 Temperature Source Skin 01/21/23 10:52 Pulse 79 01/21/23 10:52 Respiratory Rate 16 01/21/23 10:52 Respiratory Effort Normal, Non-Labored 01/21/23 10:55 Blood Pressure 140/88 01/21/23 10:52 Blood Pressure Position Sitting 01/21/23 10:52 Pulse Oximetry 100 01/21/23 10:52 Oxygen Delivery Method Room Air 01/21/23 10:52 Oxygen Flow Rate 0 01/21/23 10:52 Pain Level 10 01/21/23 10:52
[2023-01-21 11:26] LABS: Absolute Monocyte Count 0.65 10^3/uL (0.1-0.8)
[2023-01-21 11:45] LABS: ALT 27 U/L (14-59); AST 23 U/L (15-37); Albumin 4.8 g/dL (3.4-5.0); Alkaline Phosphatase 71 U/L (46-116); Anion Gap 13.3 mmol/L (3-11); BUN 10 mg/dL (7-18); CO2 22.7 mmol/L (21.0-32.0); CREATININE 0.8 mg/dL (0.55-1.02); Calcium 9.4 mg/dL (8.5-10.1); Chloride 104 mmol/L (98-107); ETHANOL BLOOD < 3.0 mg/dL (<10); Estimated GFR 106.11 (mL/min/1.73m2); Glucose 138 mg/dL (74-106); Magnesium 1.4 mg/dL (1.8-2.4); Potassium 3.4 mmol/L (3.5-5.1); Sodium 140 mmol/L (136-145); Total Protein 8.3 g/dL (6.4-8.2)
--- NOTE | 2023-01-21 11:45 | DI.CT_ITS ---
Exam(s) CT ABDOMEN PELVIS W EXAM: CT ABDOMEN PELVIS W CLINICAL HISTORY: Abdominal pain, N/V/D. TECHNIQUE: Imaging Protocol: Axial computed tomography images with coronal and sagittal reformatted images were created and reviewed CONTRAST MATERIAL: Intravenous: Omnipaque 350 Contrast volume:100 ml Oral: / no COMPARISON: CT CT ABDOMEN PELVIS W from 10/08/2021 FINDINGS: ABDOMEN: Lung Bases: Normal where visualized. Liver: Normal density. No measurable mass. Gallbladder and biliary tract: No radiodense calculus or dilation. Pancreas: Normal density, no abnormal calcifications or inflammatory process. Spleen: Normal. Kidneys: Normal size, contour and axis. No radiodense stones or obstructive uropathy. No suspicious m asses seen. Adrenal glands: No masses seen. Abdominal Aorta: Abdominal portion non-dilated. Soft tissues: Unremarkable. PELVIS: Bladder: No gross wall thickening. No calculi.No focal mass. Bowel: No obstruction. No bowel wall thickening. Appendix normal. Normal quantity of stool. Peritoneal cavity: No ascites, collection or mesenteric inflammatory response. Bones: Unremarkable for age. Reproductive organs: IUD noted. Lymph nodes: Unremarkable. Impression: Unremarkable CT scan of the abdomen and pelvis. RADIATION DOSE DELIVERED: 574.78mGy.cm Total DLP DATA REPOSITORY: All CT scans at this facility are submitted to the National Radiology Data Registry (NRDR) Dose Index Registry (DIR) with the [employer] (A[employer]). RADIATION OPTIMIZATION: All CT scans at this facility use at least one of these dose optimization te chniques: automated exposure control; mA and/or kV adjustment per patient size (includes targeted exa ms where dose is matched to clinical indication); or iterative reconstruction.
--- NOTE | 2023-01-21 11:55 | NUR.NOTE ---
Nursing Note: referral for pcp establishment
[2023-01-21] MEDS: MAGNESIUM SULFATE 1 GM/100 ML BAG IVPB (12:30)
[2023-01-21] MEDS: Normal Saline 1,000 ML 150 ML IV (12:30)
[2023-01-21 13:05] LABS: Bilirubin Negative (Negative); Blood Negative (Negative); Clarity Clear (Clear); Glucose Negative (Negative); Ketones 80 mg/dL (Negative); Leukocyte Esterase Trace (Negative); Nitrite Negative (Negative); Specific Gravity 1.015 (1.005-1.025); Urobilinogen 0.2 mg/dL (Up to 0.2)
[2023-01-21] MEDS: Normal Saline - Diluent 50 ML VIAL IJ (13:12)
[2023-01-21] MEDS: Omnipaque 350 MG/ML 500 ML BTL-Imaging package 100 ML IJ (13:13)
[2023-01-21 13:14] LABS: Bacteria Rare HPF (Negative); C & S Indicated? Yes; Casts 0-2 Hyaline LPF (Negative); Crystals Negative HPF (Negative); Epithelial Cells Few HPF (Negative); Mucus Negative (Negative); RBC Negative HPF (0-2)
[2023-01-21 13:17] LABS: *AMPHETAMINES SCREEN URINE Negative (Negative); *BARBITURATES SCREEN URINE Negative (Negative); *BENZODIAZEPINES SCREEN URINE Negative (Negative); Cannabinoids THC Positive (Negative); Cocaine Screen,Urine Negative (Negative); METHADONE URINE SCREEN Negative (Negative); OPIATES URINE SCREEN Negative (Negative)
[2023-01-21 13:19] LABS: Tricyclic Antidepressants Negative (Negative)
[2023-01-21] MEDS: Potassium Chloride 20 MEQ TABCR 40 MEQ PO (14:20)
[2023-01-21] MEDS: Ondansetron O.D.T. 4 MG TABEF, 3 TABS/BTL PO (14:20)
== END 2023-01-21 15:55 | disposition home or self-care (01) ==
PROVIDERS: Emergency Provider Registered Nurse Emergency
DX: R11.15 Cyclical vomiting syndrome unrelated to migraine (principal); R21 Rash and other nonspecific skin eruption; E83.42 Hypomagnesemia; E87.6 Hypokalemia
CPT/HCPCS: 80053; 80307; 81025; 96361; 96365; 96375; 99285; 74177; 80320; 81003; 81015; 83735; 85025; 87086; 99284; J2405; J3475

== ENCOUNTER 2023-12-24 20:05 | Emergency (ER) | payer MEDICAID, SELFPAY ==
[2023-12-24 20:09] VITALS: BP 162/91; PULSE 100; RESP 16; TEMP 37.1; O2SAT 98
--- NOTE | 2023-12-24 20:38 | ED.GENADUL_ITS ---
Discharge Plan Disposition Patient Disposition: Home Condition: Good Discharge Details Clinical Impression: Concern about STD in female without diagnosis Primary Care Provider: Unknown,Unknown ED Provider: Frederick Neff Home Meds and New Rx's Prescriptions: No Action Mirena 21 mcg/24 hours (8 yrs) 52 mg intrauterine device 1 device intrauterine ONCE Rx Instructions: as a single dose Discharge Instructions Instructions: Sexually transmitted infections Additional Instructions: At this time there is no evidence of herpes or a sexually transmitted infection. This does not mean that you have not come in contact with herpes, but it does mean that there is no evidence of an active herpes infection. If you do develop any lesions, please return immediately for testing. If your significant other's testing returns positive, please do not hesitate to return and we can get the blood work that we discussed. If you notice any worsening of your symptoms, or any new symptoms such as vomiting, diarrhea, fever, chills, shortness of breath, chest pain, numbness, weakness, or fainting , please return immediately to the emergency department for reevaluation. Please follow up with your primary care provider as soon as possible for reassessment and reevaluation. As always, it was a pleasure participating in your medical care today. HPI General Date/Time Provider Initiated Documentation: 12/24/23 20:15 . HPI Narrative: This is a pleasant 23-year-old female who denies any previous past medical history who presents today for STI evaluation. Patient has no history of STDs in the past. She is sexually active with her current boyfriend. She does not use protection with him. She is on control. Patient states that yesterday her boyfriend noticed lesions on his suprapubic region. He went to a clinic and was tested for herpes. Those results have not yet returned, but there was concern that his lesions may represent herpes. While the patient had no lesions or symptoms herself, she did want to get testing for self. She denies any dysuria, new lesions, vesicles, burning with urination, vaginal discharge, or pain with intercourse. No other complaints at this time. No other modifying factors. Related Data Home Medications ?Medication ?Instructions ?Recorded ?Confirmed levonorgestrel 21 mcg/24 hr (up to 1 device intrauterine ONCE 10/30/22 12/24/23 8 years) 52 mg intrauterine device (Mirena) Allergies Allergy/AdvReac Type Severity Reaction Status Date / Time No Known Allergies Allergy Unverified 12/24/23 20:19 General Stated Complaint: GenMedical ERIK: 5 Review of Systems All systems reviewed & are unremarkable except as noted in HPI and below Exam Narrative Exam Narrative: 1.Const: Well-nourished, Well-developed, appearing stated age 2.Eyes: PERRL, no conjunctival injection, and symmetrical lids. 3.ENT: Atraumatic external nose and ears. Moist MM. Neck: Symmetric, trachea midline, No thyromegaly. 4.CVS: +S1/S2, No murmurs or gallops. Peripheral pulses 2+ and equal in all extremities. Brisk capillary refill in all extremities. 5.RESP: Unlabored respiratory effort. Clear to auscultation bilaterally. No wheezes rales or rhonchi 6.GI: Soft, Nontender/Nondistended, No hepatosplenomegaly. No guarding or rebound. Genital exam was performed with female nurse Yolanda at bedside. Suprapubic area demonstrated no lesions, no evidence of vesicles, rash, redness or other abnormalities. Evaluation of the mons pubis, labia majora, labia minor, vaginal vault, clitoral area, and groin did not show any evidence of lesions, vesicles, ulcerations, or other abnormalities. No vaginal discharge was present. 7.MSK: Normocephalic/Atraumatic, Extremities w/o deformity or ttp No cyanosis or clubbing, Normal movement of all extremities 8.Skin: Warm, Dry. No rashes or lesions. 9.Neuro: brazer repair and salvage II-XII grossly intact. Sensation grossly intact, no focal neurologi c deficits. 10.Psych: (AAO) x3. Appropriate mood and affect Course Vital Signs Vital signs: Vital Signs Temperature 37.1 C 12/24/23 20:09 Pulse 100 H 12/24/23 20:09 Respiratory Rate 16 12/24/23 20:09 Blood Pressure 162/91 H 12/24/23 20:09 Pulse Oximetry 98 12/24/23 20:09 Temperature 37.1 C 12/24/23 20:09 Temperature Source Temporal Artery Scan 12/24/23 20:09 Pulse 100 H 12/24/23 20:09 Respiratory Rate 16 12/24/23 20:09 Respiratory Effort Normal 12/24/23 20:15 Blood Pressure 162/91 H 12/24/23 20:09 Pulse Oximetry 98 12/24/23 20:09 Oxygen Delivery Method Room Air 12/24/23 20:09 Oxygen Flow Rate 0 12/24/23 20:09 Pain Level 0 12/24/23 20:09 Medical Decision Making This is a pleasant 23-year-old female who denies any previous past medical history who presents today for STI evaluation. Patient has no history of STDs in the past. She is sexually active with her current boyfriend. She does not use protection with him. She is on control. Patient states that yesterday her boyfriend noticed lesions on his suprapubic region. He went to a clinic and was tested for herpes. Those results have not yet returned, but there was concern that his lesions may represent herpes. While the patient had no lesions or symptoms herself, she did want to get testing for self. She denies any dysuria, new lesions, vesicles, burning with urination, vaginal discharge, or pain with intercourse. No other complaints at this time. No other modifying factors. Physical exam demonstrated no lesions or drainage discharge ulcers or other abnormality whatsoever for the pubic area, genitals, or vaginal vault. No active drainage or discharge to suggest gonorrhea, chlamydia, bacterial vaginosis or fungal infection. No lesions to suggest active herpes. We discussed risk benefits and testing accuracy of a blood test without history of STDs or active lesions. Patient has decided to hold on blood testing at this time. There are no lesions to scraper test for to test for herpes at this time. We did do a dirty urine test for gonorrhea and chlamydia and we will contact the patient with the results. She has declined antibacterial treatments at this time. Patient otherwise remained stable. We recommend using protection at all times, avoiding intercourse with her significant other until his testing returns , and we recommend that she verify testing herself by asking for visual confirmation of the negative results. We recommend that she return promptly if she noticed any other lesions, and she can return at any point for the blood testing. She will be contacted if the gonorrhea or chlamydia returns. I have extensively reviewed the treatment plan and discharge instructions with the patient. I have addressed all patient concerns at this time. The patient was made aware of what symptoms to monitor for that would warrant a return to the emergency department. Discussed the plan with the patient, they demonstrate verbal understanding and agreement with our assessment and plan at this time. The documentation in this chart was dictated using [employer] dictation software. Please excuse any dictation errors. Quality:SDOH Health Related Social Needs: No Data to Display PFSH All Active Problems Concern about STD in female without diagnosis (Acute) Social History Smoking/Tobacco Use Status: Current every day Tobacco Type: cigarettes Tobacco: How many years used: 3 Smoking risk assessment performed?: Yes Alcohol Intake: current Alcohol Intake frequency: a few times a month Alcohol type: beer, wine and hard liquor Drug use: Daily Substance use type: marijuana Do you feel safe at home: Yes Do you feel safe in your relationship?: Yes Female Reproductive History Menstrual control method: progestin IUCD
--- OUTSIDE RECORDS SUMMARY | 2023-12-24 20:45 | XMS_ITS | Encounter Summary ---
Author Organization [facility] Address [address] [place] [address] Care Team Providers Care Crutch Maker Name Role Phone Unknown, Provider Primary Care Provider [phone] Reason for Visit * Reason Onset Date Comments Referral Request 09/29/2012 Encounter Details Date Type Department Care Team (Late st Contact Info) Description 09/29/2012 Telephone [facility] Pediatric Cardiology - Main [address] [id number] [place], Ramona Peralta MD [address] [place] [id number] Referral Request Social History Tobacco Use Types Packs/Day Years Used Date Smoking Tobacco: Never Assessed Sex and Gender Information Value Date Recorded Sex Assigned at Not on file Gender Identity Not on file Sexual Orientation Not on file documented as of this encounter Miscellaneous Notes * Telephone Encounter - Keeley Linton - 09/29/2012 0911 EDT Shanice Constantino 2000 [id number] New Patient Appointment: PCP: ROSALINO Miranda Dx: Chest pain Tests: Echocardiogram (in [facility]), EKG, CXR Other: Patient seen in ED 09/28/12, Dr. Zepeda consulted and recommended cardiology follow up [place] [id number] Appt: November [address] Zepeda New patient info pack sent: 09/29 documented in this encounter Plan of Treatment Not on file documented as of this encounter Visit Diagnoses Not on filedocumented in this encounter Care Teams Crutch Maker Relationship Specialty Start Date End Date Unknown, Provider, PCP - General 09/28/12 11/16/14 documented as of this encounter
--- OUTSIDE RECORDS SUMMARY | 2023-12-24 20:45 | XMS_ITS | Referral Summary ---
Author Organization [facility] Address [address] [place] [address] Care Team Providers Care Matrix Drier Tender Name Role Phone Unknown, Provider Primary Care Provider [phone] Allergies No known active allergies Medications No known medications Active Problems Patient Care Coordination No te Formatting of this note migh t be different from the original. D-Share @ [facility] Problem Noted Date Diagnosed Date Leukocytosis 03/21/2019 Overview: WBC 19-20K range Nl diff Nl smear MCV high [o] folate, B12, ferritin [ ] repeat 6-8 wks PP Last Assessment & Plan: - She has demonstrated a persistent elevation in her WBC throughout . Most recent labs appear to be stable. A peripheral smear did not demonstrate evidence of a specific lymphoproliferative process. She does not demonstrate any evidence of recurrent infections or intramniotic infection. The most likely explanation is a normal physiologic response to and/or chronic inflammation. Smoking additionally may contribute to leukocytosis. CBC differential, which essentially normal, has at times demonstrated a slight left shift, but most recently this has been normal. We do not suspect an underlying serious etiology for this, and additionally this is not anticipated to have any impact on her care or her delivery. We recommend follow-up with CBC 6-8 weeks following delivery. If leukocytosis persists at that time, repeat peripheral smear and hematology consultation should be obtained. - She has mild anemia of , but differential included macrocytosis. Given the hematologic abnormalities, ferritin, B12 and folate were sent today. We additionally repeated a CBC. 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 Aortopexy at [facility] at 5 mos of age (Jun 1999)--thoracotomy, removed part of thymus, pexed aorta anteriorly and leftward to chest wall to relieve tracheal compression Normal TTE in 2013, no issues since infancy Recommended detailed US and echo Otherwise routine care, plans delivery at [facility] Musculoskeletal chest pain 09/28/2012 Social History Tobacco Use Types Packs/Day Years Used Date Smoking Tobacco: Never Alcohol Use Standard Drinks/Week Comments Not Asked 0 (1 standard drink = 0.6 oz pur e alcohol) Interpersonal Safety Answer Date Record ed Physically Hurt Never 01/15/2020 Verbally Threaten Not on file 01/15/2020 Sex and Gender Information Value Date Recorded Sex Assigned at Not on file Gender Identity Not on file Sexual Orientation Not on file Last Filed Vital Signs Vital Sign Reading Time Taken Comments Blood Pressure 100/60 03/21/2019 1454 EDT Pulse 88 10/20/2018 1444 EDT Temperature - - Respiratory Rate 30 09/28/2012 1403 EDT Oxygen Saturation 99% 10/20/2018 1444 EDT Inhaled Oxygen Concentration - - Weight 86.7 kg (191 lb 1.6 oz) 03/21/2019 1454 E DT Height 172.7 cm (5' 7.99) 03/21/2019 1454 EDT Body Mass Index 29.06 03/21/2019 1454 EDT Plan of Treatment Not on file Care Teams Matrix Drier Tender Relationship Specialty Start Date End Date Unknown, Provider, PCP - General 10/19/18
--- OUTSIDE RECORDS SUMMARY | 2023-12-24 20:45 | XMS_ITS | Encounter Summary ---
Author Organization [facility] Address [address] [place] [address] Care Team Providers Care Printing Screen Assembler Name Role Phone Unknown, Provider Primary Care Provider Reason for Visit * Reason Comments Advice Only elevated WBCS Encounter Details Date Type Department Care Team (Late st Contact Info) Description 03/21/2019 15:00 EDT Initial consult [facility] Obstetrics & Midwifery - [address] [phone] Diane Calvillo MD [address] [facility], [address] [place] [id number] Leukocytosis, unspecified type (Primary Dx); History of congenital vascular malformation Social History Tobacco Use Types Packs/Day Years Used Date Smoking Tobacco: Never Alcohol Use Standard Drinks/Week Comments Not Asked 0 (1 standard drink = 0.6 oz pur e alcohol) Comments Yes Sex and Gender Information Value Date Recorded Sex Assigned at Not on file Gender Identity Not on file Sexual Orientation Not on file documented as of this encounter Last Filed Vital Signs Vital Sign Reading Time Taken Comments Blood Pressure 100/60 03/21/2019 1454 EDT Pulse - - Temperature - - Respiratory Rate - - Oxygen Saturation - - Inhaled Oxygen Concentration - - Weight 86.7 kg (191 lb 1.6 oz) 03/21/2019 1454 E DT Height 172.7 cm (5' 7.99) 03/21/2019 1454 EDT Body Mass Index 29.06 03/21/2019 1454 EDT documented in this encounter Progress Notes * Diane Calvillo MD, - 03/21/2019 1500 EDT [facility] Attending I saw and examined the patient. I agree with impression and plan as noted above. I spent 15 minuteswith the pt 15 min in discussion of the plan as above. Pt healthy, no hx infections or infalmm dz; had aortopexy as child without chest symptoms Reviewed can be nl for preg to have increased WBC- has nl smear Does have increased MCV- will check B12, folate, and ferritin (just to make sure increased WBC not Fe deficiency) Repeat 6-8 wks PP CBC and smear with heme fu if remains elevated Diane Calvillo MD * Rama Platt MD, - 03/21/2019 1500 EDT Dear SUNITA Denis, Thank you for referring your patient, Shanice Constantino, to be seen in the [facility] clinic. As you know, she is a 19 y.o. at 38w4d. Shanice's is complicated by: 1. Persistent leukocytosis in - Slow but persistent increase in WBC noted throughout . Patient reports 3 UTIs in but is not on suppressive antibiotics and denies any history of recurrent infection. She currently smokes 1/2 ppd, cut down from 1 ppd. She stopped smoking marijuana, which she used every other night, a few weeks ago. She has a negative review of systems today. - She denies any history suggestive of ruptured membranes or intramniotic infections, denying leakage of fluid, fevers, chills, abdominal pain. - Labs: - 10/18/18: 12.94>12.1/36<149 - 01/06/19: 18.41>11.4/34<134 - 9/: 22.21>12.2/38<170 - 03/07/19: 19.34>11.7/35<140 IG% 0.7, IG count 0.1, baso % 0.2, baso count 0.0, eos 0.8, eos count 0.2, lymph % 10.4, lymph count 2.0, MCH 30.8, MCHC 33.1, MCV 93 (H), mono % 8.6, mono count 1.7 (H), neut % 79.3, Neut count 15.4(H) Peripheral smear: Leukocytosis with mature granulocytosis, differential include acute physiologic stress or a true response to a pathologic process no evidence of a lymphoproliferative processs. 2. 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 This was not specifically readdressed today. 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 Current medications: No current outpatient medications on file. Past surgical history: Shanice has a past surgical history that includes Aorta surgery (1999) and bronchoscopy (1999). Family history: Shanice is not aware of any history of defects, congenital anomalies or syndromic disorders ineither her family or that of the father. Specifically she denies any known history of hematologic disorders. Social history: Shanice lives with her boyfriend. She does not work. She currently smokes 1/2 ppd, cut down from 1 ppd. She stopped smoking marijuana, which she used every other night, a few weeks ago. Allergies: No Known Allergies Objective: Blood pressure 100/60, height 172.7 cm (67.99), weight 86.7 kg (191 lb 1.6 oz), last menstrual period 06/24/2018. Body mass index is 29.06 kg/m??. General: Comfortable, NAD Abd: Gravid, nontender, FH 38 cm and cephalic by Leopolds. FHR 132 bpm. Assessment & Recommendations: Shanice Constantino is a 19 y.o. at 38w4d with complicated by: Leukocytosis - She has demonstrated a persistent elevation in her WBC throughout . Most recent labs appear to be stable. A peripheral smear did not demonstrate evidence of a specific lymphoproliferative process. She does not demonstrate any evidence of recurrent infections or intramniotic infection. The most likely explanation is a normal physiologic response to and/or chronic inflammation.Smoking additionally may contribute to leukocytosis. CBC differential, [...] sent today. We additionally repeated a CBC. Thank you for the opportunity to participate in the care of Shanice. Please let us know of any questions or concerns. Ms. Constantino was seen in conjunction with Dr. Calvillo. Sincerely, Rama Platt MD PhD MFM Fellow, PGY5 Pager #[phone] documented in this encounter Miscellaneous Notes * Assessment & Plan Note - Rama Platt MD, MD - 03/21/2019 1731 EDT Associated Problem(s): Leukocytosis - She has demonstrated a persistent elevation in her WBC throughout . Most recent labs appear to be stable. A peripheral smear did not demonstrate evidence of a specific lymphoproliferative process. She does not demonstrate any evidence of recurrent infections or intramniotic infection. The most likely explanation is a normal physiologic response to and/or chronic inflammation.Smoking additionally may contribute to leukocytosis. CBC differential, [...] sent today. We additionally repeated a CBC. documented in this encounter Plan of Treatment Not on file documented as of this encounter Results * FOLATE (03/21/2019 16:04 EDT) Folate 10.1 ng/ml 03/22/2019 9:58 EDT [facility] Comment: Deficient: ??Less than 3.4 ng/mL Indeterminate: ??3.4-5.4 ng/mL Normal: ??Greater than 5.4 ng/mL The results of this assay can be falsely elevated due to the consumption of Biotin. Blood specimen (specimen) BLOOD SPECIMEN / Unknown 03/21/2019 16:04 EDT 03/21/2019 16:22 EDT Rama Platt MD CHEMISTRY & BLOOD GA S ORDERABLES Performing Organization Address City/[facility] Co de Phone Number [facility] [address] [place] [address] * ALT (03/21/2019 16:04 EDT) [facility] ALT 11 <34 U/L 03/21/2019 16:55 EDT [facility] Blood specimen (specimen) BLOOD SPECIMEN / Unknown 03/21/2019 16:04 EDT 03/21/2019 16:22 EDT Rama Platt MD CHEMISTRY & BLOOD GA S ORDERABLES Performing Organization Address [facility] Co de Phone Number [facility] [address] [place] [address] * AST (03/21/2019 16:04 EDT) Pathologist [facility] AST 28 15 - 46 U/L 03/21/2019 16:55 EDT [facility] Blood specimen (specimen) BLOOD SPECIMEN / Unknown 03/21/2019 16:04 EDT 03/21/2019 16:22 EDT Rama Platt MD CHEMISTRY & BLOOD GA S ORDERABLES Performing Organization Address [facility] Co de Phone Number [facility] [address] [place] [address] * (ABNORMAL) VITAMIN B12 (03/21/2019 16:04 EDT) Pathologist [facility] Vitamin B-12 150(L) 211 - 911 pg/ml 03/22/2019 9:58 EDT [facility] Blood specimen (specimen) BLOOD SPECIMEN / Unknown 03/21/2019 16:04 EDT 03/21/2019 16:22 EDT Rama Platt MD CHEMISTRY & BLOOD GA S ORDERABLES Performing Organization Address City/[facility]/ZIP Co de Phone Number [facility] [address] [place] [address] * (ABNORMAL) FERRITIN (03/21/2019 16:04 EDT) Pathologist [facility] Ferritin 9(L) 10 - 291 ng/ml 03/22/2019 9:58 EDT [facility] Blood specimen (specimen) BLOOD SPECIMEN / Unknown 03/21/2019 16:04 EDT 03/21/2019 16:22 EDT Rama Platt MD CHEMISTRY & BLOOD GA S ORDERABLES Performing Organization Address City/[facility] Co de Phone Number [facility] [address] [place] [address] * (ABNORMAL) COMPLETE BLOOD COUNT AND DIFFERENTIAL (03/21/2019 16:04 EDT) Pathologist [facility] WBC 17.67(H) 4.0 - 12.4 K/cmm 03/21/2019 16:36 EDT [facility] RBC 3.72(L) 3.86 - 5.04 M/cmm 03/21/2019 16:36 EDT [facility] Hemoglobin 11.6 11.6 - 15.2 gm/dl 03/21/2019 16:36 T [facility] HCT 34.3(L) 34.9 - 44.4 % 03/21/2019 16:36 EDT [facility] MCV 92 81 - 98 fl 03/21/2019 16:36 EDT [facility] MCH 31.2 26.7 - 33.3 pg 03/21/2019 16:36 T [facility] MCHC 33.8 32.1 - 35.9 gm/dl 03/21/2019 16:36 [facility] RDW-CV 11.9 <14.7 % 03/21/2019 16:36 [facility] RDW-SD 40.2 <50.4 fl 03/21/2019 16:36 [facility] PLT 157 141 - 377 K/cmm 03/21/2019 16:36 [facility] MPV 12.9(H) 9.5 - 12.7 fl 03/21/2019 16:36 [facility] % Neutrophils 78.8 % 03/21/2019 16:36 [facility] % Lymphocytes 11.3 % 03/21/2019 16:36 [facility] % Monocytes 8.0 % 03/21/2019 16:36 [facility] % Eosinophils 0.8 % 03/21/2019 16:36 [facility] % Basophils 0.3 % 03/21/2019 16:36 [facility] % Immature Grans 0.8 % 03/21/2019 16:36 [facility] ABS Neutrophils 13.92(H) 2.20 - 8.85 K/cmm 03/21/2019 16:36 [facility] ABS Lymphs 2.00 1.09 - 3.30 K/cmm 03/21/2019 16:36 [facility] ABS Monocytes 1.42(H) 0.1 - 0.8 K/cmm 03/21/2019 16:36 [facility] ABS Eosinophils 0.14 0.03 - 0.61 K/cmm 03/21/2019 16:36 [facility] ABS Basophils 0.05 0.01 - 0.11 K/cmm 03/21/2019 16:36 [facility] ABS Immature Grans 0.14(H) 0 - 0.06 K/cmm 03/21/2019 16:36 [facility] Type of Diff: Automated 03/21/2019 16:36 [facility] Blood specimen (specimen) BLOOD SPECIMEN / Unknown 03/21/2019 16:04 EDT 03/21/2019 16:22 EDT Rama Platt MD PACKAGES & DNA PROBE ORDERABLES [facility] [address] [place] [address] documented in this encounter Visit Diagnoses Diagnosis Leukocytosis, unspecified type- Primary History of congenital vascular malformation documented in this encounter Care Teams Printing Screen Assembler Relationship Specialty Start Date End Date Unknown, Provider, PCP - General 10/19/18 documented as of this encounter
--- OUTSIDE RECORDS SUMMARY | 2023-12-24 20:45 | XMS_ITS | Encounter Summary ---
Author Organization [facility] Address [address] [place] [address] Care Team Providers Care Lead Tank Mechanic Name Role Phone Unknown, Provider Primary Care Provider [phone] Reason for Visit * Reason Comments Chest Pain Encounter Details Date Type Department Care Team (Late st Contact Info) Description 09/28/2012 13:52 EDT - 09/28/2012 18:00 EDT Emergency [facility] Emergency Department - [address] [id number] Denise Biswas MD [address] [facility], [address] [phone] Bharat Cruz MD Costochondritis (Primary Dx) Discharge Disposition: Home or Self Care Social History Tobacco Use Types Packs/Day Years Used Date Smoking Tobacco: Never Assessed Sex and Gender Information Value Date Recorded Sex Assigned at Not on file Gender Identity Not on file Sexual Orientation Not on file documented as of this encounter Last Filed Vital Signs Vital Sign Reading Time Taken Comments Blood Pressure 91/80 09/28/2012 1403 EDT Pulse - - Temperature - - Respiratory Rate 30 09/28/2012 1403 EDT Oxygen Saturation 100% 09/28/2012 1403 EDT Inhaled Oxygen Concentration - - Weight - - Height - - Body Mass Index - - documented in this encounter Discharge Instructions * Discharge Instructions* Marlee Dumont MD - 09/28/2012 17:32 EDT José Manuel was seen today for chest pain. Her chest pain is most likely costochondritis, or inflammation of the cartilage that attaches to the ribs. The best way to treat this is with anti-inflammatory medications. 1. Take Ibuprofen 600 mg (3 200 mg pills) every 6 hours for the next 3 days. Take with some food. After 3 days, you can go down to 400 mg every 6 hours for 3 days, then 400 mg as you need it. 2. Follow up with your regular doctor in 3-4 days, or sooner if your symptoms worsen 3. Work on relaxation techniques, as Rubenss pain seems to get worse when she is worried or anxious. * Attachments The following attachments cannot be sent through Care Everywhere. * COSTOCHONDRITIS: AFTER YOUR CHILD'S VISIT (INDONESIAN) documented in this encounter Discharge Disposition Disposition Code Departure Means Destination Home or Self Care documented in this encounter ED Notes * Tamera Marc RN - 09/28/2012 1750 EDT D/c instructions given by peds resident. * Tamera Marc RN - 09/28/2012 1600 EDT Care assumed by this RN. Echocardiogram in progress. * Josette Biswas MD - 09/28/2012 1428 EDT [facility] Adolescent ED Note Admit Date: 09/28/2012 Date of Service: 09/28/2012 PCP: Esther Lo INSIDE SALES RECRUITER: family medicine at [facility] Chief Complaint: acute chest pain HPI: José Manuel Constantino is a previously healthy 12 y.o. female presenting with acute chest pain since this morning. She was in her usual state of health when her mother woke her this morning. She developed sharp stabbing chest pain all over her chest that worsened with breathing within a few minutes of waking this morning. She complained of chest pain throughout the morning, but was able to do her normal morning activities. The family then got in the car, and while in the car pain acutely increased to the point that she was crying and pleading to go to the hospital. She was brought to [facility] ED where labs (listed below), EKG, and CXR were reassuring. She was given fentanyl which partially helped her pain but only temporarily. 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 She was then transferred via [facility] for further evaluation. Transport was uneventful. Due to pain, FACT gave additional fentanyl and ativan. They noted that the ativan seemed to help her symptoms greatly. Aside from the chest pain, José Manuel denies any other symptoms. Her mother states that she has had a slight cough for the last few days, but her mother attributes this to mild seasonal allergies. She has not had any runny nose, sore throat, or recent colds. She denies any nausea or vomiting. She was able to eat breakfast this morning without any difficulty. No recent rashes or fever. No known trauma. José Manuel notes that she has had limited activities over the last 6 days as she has been grounded. 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 Recent stress at home: has been grounded for the last 6 days after she was caught being a lookout for friends that weresmoking marijuana at school. No family history on file. Allergies Immunizations Allergies not on file Per mother, has seasonal allergies Up to date: yes Mother notes she received 3rd HPV immunization 2-3 weeks ago. Medications No home medications. School: Doing well in school, enjoys science Review of Systems Positive Negative Constitutional x HEENT Mild cough Cardiovascular Acute chest pain Pulmonary x GI x x Endocrine x Heme x MSK x Neuro x Social Recent school/family stressors Objective/ VS: Patient Vitals for the past 8 hrs: BP Resp SpO2 09/28/12 1403 91/80 mmHg 30 100 % Per FACT documentation, 115 lb (52 kg) Physical Exam: Exam: General Appearance: awake and alert, interacts appropriately, no acute distress. Splinting with breaths in initial exam, but later improved after medication with toradol. Splinting and respiratory rate increased when discussing pain, decreased when distracted with cell phone, other topics. HEENT: normocephalic, atraumatic, PERRL, MMM, OP Clear, no LAD, no thyromegaly Cardiovascular: RRR with no m/r/g, normal S1 and S2. Venous distention noted on left side of neck only, pulsatile. Chest: tenderness to palpation especially on the costochondral junctions bilaterally. Does complainof some tenderness on palpation of rib cartilages where attaching to the spine. Respiratory: CTA bilaterally with no increased work of breathing Abdominal: soft nontender, nondistended, normoactive bowel sounds, no masses, no hepatosplenomegaly Extremities: warm and well perfused, capillary refill <3 sec, no deformities noted Neurologic: awake and alert, interactive Dermatologic: no rashes Data Review: I have independently visualized the, x-ray(s), specimen(s) and tracing(s) Labs: From [facility] Rapid Strep negative Monospot negative CBC: WBC 12.3 (75%N, 15%L, 8.5%mono, 0 bands)/ Hb 14.5 / Hct 44% / plt 262 Na 141 / K 3.8 / Cl 103 / CO2 31 / BUN 11 / Cr 0.55 / Ca 9.2 / Glu 99 Lipase 98 Troponin <0.04 D-Dimer <100 Other Studies: CXR: reviewed by myself, Dr. Biswas, and Dr. Quiñones. Normal heart size, lungs well expanded, no peribronchial cuffing, no focal consolidation. Normal CXR. EKG: improper lead placement so difficult to interpret. Regular rate and rhythm, normal progressionthrough the precordial leads. Reviewed with Dr. Quiñones. Echo: unofficial report per Dr. Quiñones: no structural problems with the heart. 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 Will require cardiology follow up. Problem Based Assessment/Plan: José Manuel is a 12 year old girl with a PMH significant for remote history of surgery for vascular ringpresenting with 1 day of acute chest pain. [facility] jugular venous distentionin the context of acute chest pain. As pain is easily reproducible with palpation, pain is most likely musculoskeletal in nature, likely costochondritis. Unlikely to be cardiac cause given normal echo. Venous distention can be explained by the narrowed innominate vein. Pain responded well to toradol while in the ED - discharge to home - 600 mg ibuprofen q6 hrs with food for the next 3 days, followed by 400 mg ibuprofen q6 for three days, followed by PRN. - family to see PCP in the next week - cardiology follow up will be arranged by Dr. Quiñones Discharge Plan: Home with family Consults: None Marlee Dumont MD PGY2 Pediatrics Pager [phone] 09/28/2012 14:42 Attending Addendum: I saw and examined the patient and agree with the resident note as edited. I discussed the plan of care with the family, house staff and nursing staff. Josette Biswas MD Pediatric Hospitalist 09/28/2012 21:59 * Armin Echavarria RN - 09/28/2012 1402 EDT Pt awoke this am was playing with sister developed chest pain- went to OSH. Chest film done, pt received fentanyl and ativan * Maggi Mcdaniels I - 09/28/2012 1357 EDT TCALL: Transfer from [facility] accepted by Dr Cruz (to be seen by peds) for eval of chest pain extending across mid-chest since waking today. Crying, c/o shortness of breath, hurts with deep breath. EKG: inverted t-waves. Had vascular chest surgery at young age. Doesn't smoke. +Anxious. CXR OK. +JVD (not much). 5'4 tall, weight ~105#. BP 130/80 to 115/65, p 97, rr 26, sinus rhythm, SpO2 96-98% RA,alert and oriented. Rec'd fentanyl and zofran for 8/10 pain. #18g IV left AC. Mother with patient. Report taken by Cecile Smyth RN. documented in this encounter Miscellaneous Notes * Scanned Note-Null - MAIL ROOM, SCAN 2 - 10/01/2012 1337 EDT * Scanned Note-Null - MAIL ROOM, SCAN 2 - 09/30/2012 0733 EDT * Scanned Note-Null - MAIL ROOM, SCAN 2 - 09/28/2012 1636 EDT * Scanned Note-Null - MAIL ROOM, SCAN 2 - 09/28/2012 1502 EDT documented in this encounter Plan of Treatment Pending Results Name Type Priority Associated Diagnoses Date /Time OUTSIDE IMAGES - OTHER CHEST Imaging 09/28/2012 12:15 EDT documented as of this encounter Procedures Procedure Name Priority Date/Time Associated Diagnosis Comments POCT TEST, VISUAL READ STAT 09/28/2012 17:34 EDT ECHOCARDIOGRAM STAT 09/28/2012 15:55 EDT documented in this encounter Results * POCT URINE TEST (09/28/2012 17:34 EDT) Test, Urine, POC Negative Reference Range, Negative Control Line Present Yes Background Clear? Yes Urine specimen (specimen) 09/28/2012 17:34 EDT Marlee Dumont MD POINT OF CARE TEST O RDERABLES * ECHOCARDIOGRAM (09/28/2012 15:55 EDT) Anatomical Region Laterality Modality Other 09/28/2012 15:5 5 EDT Narrative 09/28/2012 18:36 EDT Patient Name: JOSÉ MANUEL CONSTANTINO Chart Number: [id number] Site Location: Date of Appt: Friday, September 28, 2012, 3:55 PM Pediatric Echocardiogram Report Demographics and Visit Data: : 2000. ??Age: 12y/7m/4d. ??Sex: F. ??BSA (m 2): 1.40. ?? Weight (kg): 52.27. ??Patient location: [facility]. ??Weight Centile: 61.91. ?? Person requesting test: DENISE BISWAS MD. ??Motorsports Technician: Wendie Andrade. ?? Reason for test: CHEST PAIN, left sided JVD. 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 ?? Procedure Description: ECHOCARDIOGRAM. ?? Summary: Status post aortopexy 99. Mild narrowing at the junction of the superior vena cava with the innominate vein and flow cannot be demonstrated in the innominate vein. No other structural abnormality identified. Normal chamber sizes and ventricular systolic function. Normal Doppler study. Normal proximal coronary arteries. The atrioventricular and semilunar valve anatomy and function are normal. There are no significant atrial, ventricular or ductal shunts. No coarctation detected. Pulmonary and systemic venous connections are normal. Full echocardiogram obtained including color and pulse/continuous wave Doppler of all intracardiac valves, aorta and pulmonary artery. Follow-up in cardiology clinic has been suggested and a copy of this report is to be sent to the patient's primary care provider, Esther Lo NP. Findings: ?? Veins and Atria: ?? >> Normal Left Atrium >> Normal Right Atrium >> Intact Atrial Septum >> Superior vena cava anomaly There is mild narrowing of the venous flow at the origin of the superior vena cava by the innomnate vein. The velocity through this region is more prominent when the patient inspires and there is a mean gradient of 5-8 mmHg measured through this region. Color flow cannot be demonstrated in the innominate vein superior to the aorta. The patient on exam has prominence of the left jugular vein that is not present in the right jugular vein. ? A-V Canal: ?? >> Normal Tricuspid Valve No tricuspid regurgitation to use for estimate of right ventricular pressure. ?? >> Normal Mitral Valve No mitral regurgitation or mitral valve prolapse. ? Ventricles: ?? >> Left ventricular dysfunction, ruled out Normal global left ventricular function with no regional wall motion abnormalities identified. ?? >> Left ventricular dilation or enlargement, ruled out >> Right ventricular dysfunction global, ruled out Qualitatively good right ventricular systolic function. ?? >> Right ventricular dilation or enlargement, ruled out >> Left ventricular hypertrophy, ruled out >> Intact Ventricular Septum ?? Conotruncus: ?? >> Valvar aortic stenosis, ruled out Normal aortic valve morphology and function is demonstrated. ?? >> Aortic regurgitation, ruled out >> Valvar pulmonary stenosis, ruled out Normal Doppler study of the pulmonary valve and branch pulmonary arteries. ?? >> S/p aortopexy Aortopexy performed 99 at [facility]. By report there was relief by bronchoscopy of the anterior pulsatile compression of the distal 1/3 of the trachea due to the innominate artery. ? Great Arteries: ?? >> Normal Aorta Adjacent to the aortic valve. ?? >> Coarctation of the aorta, ruled out There appears to be a left aortic arch with possible bovine trunk (common origin of the innominate artery and left common carotid artery) - a normal variant. Normal arterial flow is noted in the head and neck vessles and no coarctation of the aorta is noted. ? Pericardium: ?? >> Pericardial effusion, ruled out ?? Other: ?? >> Doppler echo Full color and pulse/continuous wave Doppler of the intracardiac valves, aorta and pulmonary artery. ?? >> No significant heart disease ?? Measures: ?? M-Mode: ?? Name ?Value ?Units ?Z-Score ?Min ?Max ?? LV Diastolic Septal ? 0.75 ? cm ? -0.74 ?0.6 ?1.09 ?? Thickness M-Mode LV Diastolic ? 4.48 ? cm ? -0.17 ?3.9 ?5.17 ?? Dimension LV Diastolic Wall ? 0.83 ? cm ? 0.35 ? 0.58 ?? 1. ?? Thickness M-Mode LV Systolic ?2.77 ? cm ? -0.5 ? 2.33 ?? 3.51 ?? Dimension LV Fractional Shortening ?38.17 ?% ?0.84 ? 29.2 ?? 42.52 ?? Relative Wall Thickness ? 0.35 ? LV Systolic Function: ?? Name ?Value ?Units ?Z-Score ?Min ?Max ?? Endocardial FS ?38.17 ?% ?0.84 ? 29.2 ?? 42.52 ?? FS Vs Stress ?38.17 ?% ? Cardiac Geometry: ?? Name ?Value ?Units ?Z-Score ?Min ?Max ?? M-Mode LV Mass ?110.95 ?? gm ? -0.15 ?78.04 ??167.45 ?? M-Mode LV Mass Index ?79.25 ?g/m 2 ? LV Midwall Diastolic ?5.31 ? cm ? -0.05 ?4.68 ?? 5.97 ?? Dimension ?? Aorta: ?? Name ?Value ?Units ?Z-Score ?Min ?Max ?? Ao Annulus Diameter ? 2.01 ? cm ? 0.92 ? 1.52 ?? 2.19 ?? Ao Root Diameter ?2.62 ? cm ? 0.66 ? 1.93 ?? 2.96 ?? AV Area (using Diameter) ?3.17 ? cm 2 ? Sinotubular Junction ?2.21 ? cm ? 0.43 ? 1.65 ?? 2.57 ?? Diameter Ascending Ao Diameter ? 2.35 ? cm ? 0.51 ? 1.71 ?? 2.73 ? Analysis Aortic Valve Doppler: ?? Name ?Value ?Units ?? AV Area (using Diameter) ?3.17 ? cm 2 ? Martin's Name: DENISE QUIÑONES MD Date/time of reading: Sep 28 2012 - 6:34:26 PM Report created at 6:36:17 PM on Friday, September 28, 2012 Report Number: Note:Study interpreted at [facility] unless otherwise noted Procedure Note 09/28/2012 Patient Name: JOSÉ MANUEL CONSTANTINO Chart Number: [id number] Site Location: Date of Appt: Friday, September 28, 2012, 3:55 PM Pediatric Echocardiogram Report Demographics and Visit Data: : 2000. Age: 12y/7m/4d. Sex: F. BSA (m 2): 1.40. Weight (kg): 52.27. Patient location: [facility]. Weight Centile: 61.91. Person requesting test: DENISE BISWAS MD. Motorsports Technician: Wendie Andrade. Reason for test: CHEST PAIN, left sided JVD. 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 Procedure Description: ECHOCARDIOGRAM. Summary: Status post aortopexy 99. Mild narrowing at the junction of the superior vena cava with the innominate vein and flow cannot be demonstrated in the innominate vein. No other structural abnormality identified. Normal chamber sizes and ventricular systolic function. Normal Doppler study. Normal proximal coronary arteries. The atrioventricular and semilunar valve anatomy and function are normal. There are no significant atrial, ventricular or ductal shunts. No coarctation detected. Pulmonary and systemic venous connections are normal. Full echocardiogram obtained including color and pulse/continuous wave Doppler of all intracardiac valves, aorta and pulmonary artery. Follow-up in cardiology clinic has been suggested and a copy of this report is to be sent to the patient's primary care provider, Esther Lo NP. Findings: Veins and Atria: >> Normal Left Atrium >> Normal Right Atrium >> Intact Atrial Septum >> Superior vena cava anomaly There is mild narrowing of the venous flow at the origin of the superior vena cava by the innomnate vein. The velocity through this region is more prominent when the patient inspires and there is a mean gradient of 5-8 mmHg measured through this region. Color flow cannot be demonstrated in the innominate vein superior to the aorta. The patient on exam has prominence of the left jugular vein that is not present in the right jugular vein. A-V Canal: >> Normal Tricuspid Valve No tricuspid regurgitation to use for estimate of right ventricular pressure. >> Normal Mitral Valve No mitral regurgitation or mitral valve prolapse. Ventricles: >> Left ventricular dysfunction, ruled out Normal global left ventricular function with no regional wall motion abnormalities identified. >> Left ventricular dilation or enlargement, ruled out >> Right ventricular dysfunction global, ruled out Qualitatively good right ventricular systolic function. >> Right ventricular dilation or enlargement, ruled out >> Left ventricular hypertrophy, ruled out >> Intact Ventricular Septum Conotruncus: >> Valvar aortic stenosis, ruled out Normal aortic valve morphology and function is demonstrated. >> Aortic regurgitation, ruled out >> Valvar pulmonary stenosis, ruled out Normal Doppler study of the pulmonary valve and branch pulmonaryarteries. >> S/p aortopexy Aortopexy performed 99 at [facility]. By report there was relief by bronchoscopy of the anterior pulsatile compression of the distal 1/3 of the trachea due to the innominate artery. Great Arteries: >> Normal Aorta Adjacent to the aortic valve. >> Coarctation of the aorta, ruled out There appears to be a left aortic arch with possible bovine trunk (common origin of the innominate artery and left common carotid artery) - a normal variant. Normal arterial flow is noted in the head and neck vessles and no coarctation of the aorta is noted. Pericardium: >> Pericardial effusion, ruled out Other: >> Doppler echo Full color and pulse/continuous wave Doppler of the intracardiac valves, aorta and pulmonary artery. >> No significant heart disease Measures: M-Mode: Name Value Units Z-Score Min Max LV Diastolic Septal 0.75 cm -0.74 0.6 1.09 Thickness M-Mode LV Diastolic 4.48 cm -0.17 3.9 5.17 Dimension LV Diastolic Wall 0.83 cm 0.35 0.58 1. Thickness M-Mode LV Systolic 2.77 cm -0.5 2.33 3.51 Dimension LV Fractional Shortening 38.17 % 0.84 29.2 42.52 Relative Wall Thickness 0.35 LV Systolic Function: Name Value Units Z-Score Min Max Endocardial FS 38.17 % 0.84 29.2 42.52 FS Vs Stress 38.17 % Cardiac Geometry: Name Value Units Z-Score Min Max M-Mode LV Mass 110.95 gm -0.15 78.04 167.45 M-Mode LV Mass Index 79.25 g/m 2 LV Midwall Diastolic 5.31 cm -0.05 4.68 5.97 Dimension Aorta: Name Value Units Z-Score Min Max Ao Annulus Diameter 2.01 cm 0.92 1.52 2.19 Ao Root Diameter 2.62 cm 0.66 1.93 2.96 AV Area (using Diameter) 3.17 cm 2 Sinotubular Junction 2.21 cm 0.43 1.65 2.57 Diameter Ascending Ao Diameter 2.35 cm 0.51 1.71 2.73 Analysis Aortic Valve Doppler: Name Value Units AV Area (using Diameter) 3.17 cm 2 Martin's Name: DENISE QUIÑONES MD Date/time of reading: Sep 28 2012 - 6:34:26 PM Report created at 6:36:17 PM on Friday, September 28, 2012 Report Number: Note:Study interpreted at [facility] unless otherwise noted Marlee Dumont MD CARDIAC ECHO ORDERAB LES documented in this encounter Visit Diagnoses Diagnosis Costochondritis- Primary Tietze's disease documented in this encounter Administered Medications Inactive Administered Medications - up to 3 most recent administrations Medication Order MAR Action Action Date Dose Rate Site ketOROLAC (TORADOL) 30 mg/mL (1 mL) injection 1 dose, Starting on Thu09/28/12 at 1451, Until Thu09/28/12 at 1501 ketOROLAC (TORADOL) injection 15 mg 15 mg, intravenous, NOW X1, 1 dose, On Thu09/28/12 at 1515, STAT Given 09/28/2012 15:01 EDT 15 mg documented in this encounter Active and Recently Administered Medications Times are shown in EDT. Scheduled Medication Order 09/26/2012 09/27/2012 09/28/2012 ketOROLAC (TORADOL) injection 15 mg (COMPLETED) 15 mg, intravenous, NOW X1, 1 dose, On Thu09/28/12 at 1515, STAT 1501 (Given - Provid er: Armin Echavarria RN) documented in this encounter Care Teams Lead Tank Mechanic Relationship Specialty Start Date End Date Unknown, Provider, PCP - General 09/28/12 11/16/14 documented as of this encounter
--- OUTSIDE RECORDS SUMMARY | 2023-12-24 20:45 | XMS_ITS | Encounter Summary ---
Author Organization [facility] Address [address] [place] [address] Care Team Providers Care Project Consultant Name Role Phone Unknown, Provider Primary Care Provider Encounter Details Date Type Department Care Team (Late st Contact Info) Description 03/21/2019 15:47 EDT - 03/21/2019 23:59 EDT Hospital Encounter [facility] - [facility] [address] [place] [address] Rama Platt MD [address] [place] [phone] Discharge Disposition: Auto Discharge Social History Tobacco Use Types Packs/Day Years Used Date Smoking Tobacco: Never Alcohol Use Standard Drinks/Week Comments Not Asked 0 (1 standard drink = 0.6 oz pur e alcohol) Comments Yes Sex and Gender Information Value Date Recorded Sex Assigned at Not on file Gender Identity Not on file Sexual Orientation Not on file documented as of this encounter Discharge Diagnoses Diagnosis D72.829 Elevated white blood cell count, unspecified-D72.829[ICD-10-CM] documented in this encounter Discharge Disposition Disposition Code Departure Means Destination Auto Discharge Home documented in this encounter Plan of Treatment Not on file documented as of this encounter Visit Diagnoses Not on filedocumented in this encounter Care Teams Project Consultant Relationship Specialty Start Date End Date Unknown, Provider, PCP - General 10/19/18 documented as of this encounter
--- OUTSIDE RECORDS SUMMARY | 2023-12-24 20:45 | XMS_ITS | Encounter Summary ---
Author Organization [facility] Address [address] [place] [address] Care Team Providers Care Business Initiatives Manager Name Role Phone Unavailable Primary Care Provider Unavailabl e Encounter Details Date Type Department Care Team (Late st Contact Info) Description 1999 7:26 EST - 1999 11:59 EST Hospital Encounter [address] [address] Joseph Villarreal MD [address] [facility] [address] [place] [phone] Discharge Disposition: Auto Discharge Social History Tobacco Use Types Packs/Day Years Used Date Smoking Tobacco: Never Assessed Sex and Gender Information Value Date Recorded Sex Assigned at Not on file Gender Identity Not on file Sexual Orientation Not on file documented as of this encounter Discharge Disposition Disposition Code Departure Means Destination Auto Discharge documented in this encounter Plan of Treatment Not on file documented as of this encounter Procedures Procedure Name Priority Date/Time Associated Diagnosis Comments FL ESOPHAGRAM (BARIUM SWALLOW) Routine 1999 10:08 EST NECK SOFT TISSUE Routine 1999 10:0 8 EST documented in this encounter Results * NECK SOFT TISSUE (1999 10:08 EST) Anatomical Region Laterality Modality Other 1999 10:0 8 EST Impressions 04/24/2009 12:00 EST IMPRESSION: Soft tissue film of the neck shows some attenuation of the tracheal air shadow which is seen on subsequent fluoroscopy to be changeable and consistent with probable tracheomalacia. [facility] Narrative 04/24/2009 12:00 EST COUGH/ STRIDOR, ?? R/O VASCULAR RING ??SEND FILMS WITH PT* ??PT A... SOFT TISSUE NECK FILM, 99 Procedure Note Joseph García MD - 04/24/2009 COUGH/ STRIDOR, R/O VASCULAR RING SEND FILMS WITH PT* PT A... SOFT TISSUE NECK FILM, 99 IMPRESSION IMPRESSION: Soft tissue film of the neck shows some attenuation of the tracheal air shadow which is seen on subsequent fluoroscopy to be changeable and consistent with probable tracheomalacia. /[facility] Joseph Villarreal MD IMG DIAGNOST IC IMAGING ORDERABLES * FL ESOPHAGRAM (1999 10:08 EST) Anatomical Region Laterality Modality Other 1999 10:0 8 EST Impressions 04/24/2009 8:56 EST IMPRESSION: 1. The barium swallow is normal. 2. Fluoroscopy of the airway suggests tracheomalacia. DESCRIPTION: Digital spot filming and videofluoroscopy show no abnormalities of the oral, pharyngeal, or esophageal phases of the barium swallow. There is no evidence of a vascular ring and no evidence of tracheoesophageal communication, reflux, or aspiration. Fluoroscopy of the airway does show some changeable attenuation. /[facility] Narrative 04/24/2009 8:56 EST BASW-COUGH/STRIDER R/O VASCULAR RINGFILMS W/PT BARIUM SWALLOW, 99 PROBLEM STATEMENT: Cough, stridor, rule out vascular ring. Procedure Note Joseph García MD - 04/24/2009 BASW-COUGH/STRIDER R/O VASCULAR RINGFILMS W/PT BARIUM SWALLOW, 99 PROBLEM STATEMENT: Cough, stridor, rule out vascular ring. IMPRESSION IMPRESSION: 1. The barium swallow is normal. 2. Fluoroscopy of the airway suggests tracheomalacia. DESCRIPTION: Digital spot filming and videofluoroscopy show no abnormalities of the oral, pharyngeal, or esophageal phases of the barium swallow. There is no evidence of a vascular ring and no evidence of tracheoesophageal communication, reflux, or aspiration. Fluoroscopy of the airway does show some changeable attenuation. /[facility] Joseph Villarreal MD IMG FLUOROSC OPY ORDERABLES documented in this encounter Visit Diagnoses Not on filedocumented in this encounter
--- OUTSIDE RECORDS SUMMARY | 2023-12-24 20:45 | XMS_ITS | Encounter Summary ---
Author Organization [facility] Address [address] [place] [address] Care Team Providers Care Jewelry Designer Name Role Phone Unknown, Provider Primary Care Provider Raman Ayala Primary Care Provide r Reason for Visit * Reason Onset Date Comments Provider Referred 11/13/2014 Encounter Details Date Type Department Care Team (Late st Contact Info) Description 11/13/2014 Telephone [facility] Dermatology 3rd Floor [facility] [address] [place] [address] Yajaira Sanabria MD [address] [facility], [address] [place] [address] Provider Referred Social History Tobacco Use Types Packs/Day Years Used Date Smoking Tobacco: Never Assessed Sex and Gender Information Value Date Recorded Sex Assigned at Not on file Gender Identity Not on file Sexual Orientation Not on file documented as of this encounter Miscellaneous Notes * Telephone Encounter - Treasure Perdue RN - 11/17/2014 1420 EDT Patient is being referred by Raman Ayala APRN, [facility] for Skin exam Per notes : There are 4 moles, upper back. Largest is 8 mm in diameter, a brown macular lesion with a director fraud brown border. Appears benign by dermatoscope. The other 3 lesions are very similar to each other, approximately 5 mm in diameter, again macular, brown with a little director fraud brown border. Generally benign appearing nevi. Spoke to mother. Patient scheduled for FBSE 01/16/15 at 1:[address] Tom, EP3 Rama at the office of Raman Ayala APRN made aware of appointment date TREASURE PERDUE RN 11/17/2014 14:28 * Telephone Encounter - Michael Lo - 11/13/2014 1102 EDT Notes received from Raman Ayala APRN referring patient for questionable nevi upper back. Please call patient's family to schedule. documented in this encounter Plan of Treatment Not on file documented as of this encounter Visit Diagnoses Not on filedocumented in this encounter Care Teams Jewelry Designer Relationship Specialty Start Date End Date Unknown, Provider, PCP - General 09/28/12 11/16/14 Raman Ayala FNP PCP - General 11/17/14 10/18/18 documented as of this encounter
--- OUTSIDE RECORDS SUMMARY | 2023-12-24 20:45 | XMS_ITS | Encounter Summary ---
Author Organization [facility] Address [address] [place] [address] Care Team Providers Care Taker Off Name Role Phone Unknown, Provider Primary Care Provider [phone] Encounter Details Date Type Department Care Team (Late st Contact Info) Description 10/08/2021 Lab Requisition [facility] Pathology & Laboratory Medicine - [address] [address] Outr Resulting Lab, Provider Social History Tobacco Use Types Packs/Day Years Used Date Smoking Tobacco: Never Assessed Interpersonal Safety Answer Date Record ed Physically Hurt Never 01/15/2020 Verbally Threaten Not on file 01/15/2020 Sex and Gender Information Value Date Recorded Sex Assigned at Not on file Gender Identity Not on file Sexual Orientation Not on file documented as of this encounter Plan of Treatment Not on file documented as of this encounter Procedures Procedure Name Priority Date/Time Associated Diagnosis Comments ACUTE HEPATITIS PROFILE Routine 10/08/2021 7:46 EDT documented in this encounter Results * ACUTE HEPATITIS PROFILE (10/08/2021 7:46 EDT) Hep B Surface Ag Negative Negative 10/09/2021 11:29 EDT [facility] Hep C Antibody Negative Negative 10/09/2021 11:29 EDT [facility] Hepatitis A Antibody, IgM Negative Negative 10/09/2021 11:29 EDT [facility] Comment:The results of this assay can be falsely lowered due to the consumption of Biotin. Hepatitis B Core Ab, Total Negative Negative 10/09/2021 11:29 EDT [facility] Blood VENOUS BLOOD / Unknown 10/08/2021 7:46 EDT 10/08/2021 16:53 EDT Provider Outr Resulting Lab CHEMISTRY & BLOOD GAS ORDERABLES [facility] [address] [place] [address] documented in this encounter Visit Diagnoses Not on filedocumented in this encounter Care Teams Taker Off Relationship Specialty Start Date End Date Unknown, Provider, PCP - General 10/19/18 documented as of this encounter
--- OUTSIDE RECORDS SUMMARY | 2023-12-24 20:45 | XMS_ITS | Encounter Summary ---
Author Organization [facility] Address [address] [place] [address] Care Team Providers Care Financial Institution Vice President Name Role Phone Unknown, Provider Primary Care Provider Encounter Details Date Type Department Care Team (Late st Contact Info) Description 11/17/2018 Results Only [facility] [phone] Nicole Dalton, [facility] [address] [facility] [address] [place] [address] Social History Tobacco Use Types Packs/Day Years [...] Procedure Name Priority Date/Time Associated Diagnosis Comments SKILLED NURSING DETAILED 11/17/2018 16:15 EDT documented in this encounter Results * SKILLED NURSING DETAILED (11/17/2018 16:15 EDT) Anatomical Region Laterality Modality Other 11/17/2018 16:1 5 EDT 11/17/2018 17:23 EDT Narrative 11/17/2018 17:23 EDT 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 History ======= General History Height 168 cm Height (ft) ?5 ft Height (in) ?6 in Previous Outcomes ?1 Para ?? 0 Maternal Assessment Height 168 cm Height (ft) ?5 ft Height (in) ?6 in Physical Exam Initial weight 69 kg Initial weight (lb) ?153 lb Initial BMI ?24.70 kg/m? Number of fetuses: 1. Dating ======= Method of dating: ??based on the LMP LMP on: ?06/24/2018 GA by LMP ??20 w + 6 d NORA by LMP : ? 03/31/2019 Stated Dating on: ?09/16/2018 GA at stated dating date 11 w + 3 d GA by stated dating ??20 w + 2 d NORA by stated dating: ?04/04/2019 Ultrasound examination on: 11/17/2018 GA by U/S based upon: ??AC, BPD, Femur, HC GA by U/S ??20 w + 6 d NORA by U/S: ?03/31/2019 Assigned: ??Dating performed on 11/17/2018 Based on the LMP Assigned GA ?20 w + 6 d Assigned NORA: ??03/31/2019 General Evaluation Cardiac activity: Present. FHR 139 bpm. movements: visualized. Presentation: cephalic. Placenta: anterior. Umbilical cord: Cord vessels: 3 vessel cord. Cord insertion: placental insertion: normal. Amniotic fluid: Amount of AF: normal. Biometry Biometry BPD ?51.1 mm 74% 21w 3d Hadlock OFD ?62.7 mm 70% 21w 3d Linda HC 181.8 mm ?41% 20w 4d [place] AC 154.7 mm ?36% 20w 5d Hadlock Femur ??33.8 mm 54% 20w 6d Linda Cerebellum tr ??22.3 mm 65% 21w 5d Panda CM 5.4 mm ??57% Nicolaides Nuchal fold ?3.67 mm Humerus ?30.8 mm 23% 20w 1d Linda EFW ?368 g Calculated by: Hadlock ([id number]-FL) EFW (lb) ?? 0 lb EFW (oz) ?? 13 oz Cephalic index 0.81 ?79% Nicolaides HC / AC ?1.18 ?64% Hadlock FL / BPD ?? 0.66 ?7% Hadlock FL / AC ?0.22 ?39% Hadlock FHR ?139 bpm Head / Face / Neck Railcar Switcher 6.3 mm Nasal bone 7.6 mm Extremities / Bony Struc Radius 27.1 mm 25% Chitty Ulna ?? 28.9 mm 29% 20w 6d Linda Tibia ??27.6 mm 21% 20w 0d Linda Fibula 27.6 mm 24% 19w 6d Linda Foot ?? 33.4 mm 24% Chitty Anatomy Cranium: ?? normal Lateral ventricles: ?normal Choroid plexus: ?normal Midline falx: ??normal Cavum septi pellucidi: normal Cerebellum: ?normal Cisterna magna: ?normal Parenchyma: ?normal Cerebellar lobes: ??normal Vermis: ?normal Neck: ??normal Nuchal fold: ?? normal Lips: ??normal Profile: ?? normal Nose: ??normal Maxilla: ?? normal Mandible: ??normal 4-chamber view: ?normal RVOT: ??normal LVOT: ??normal 4-chamber view: ? bilateral echogenic foci. Situs: normal Aortic arch: ?? normal SVC: ?? normal IVC: ?? normal 3-vessel view: normal 2-[id number]-aucckro view: normal Rt lung: ?? normal Lt lung: ?? normal Diaphragm: normal Cord insertion: ?normal Stomach: ?? normal Bladder: ?? normal Genitals: ??normal Abdom. wall: ?? normal Rt kidney: normal Lt kidney: normal Liver: normal Cervical spine: ?normal Thoracic spine: ?normal Lumbar spine: ??normal Sacral spine: ??normal Skeleton: ??normal Arms: ??normal Legs: ??normal Rt arm: ?normal Lt arm: ?normal Rt hand: ?? normal Lt hand: ?? normal Rt leg: ?normal Lt leg: ?normal Rt foot: ?? normal Lt foot: ?? normal Gender: ?male Wants to know gender: ??yes Aneuploidy Screening Age ?19 yrs Echogenic focus: ?? no Include: ?? intracardiac echogenic focus Include: ?? ventriculomegaly Include: ?? nuchal fold Include: ?? echogenic bowel Include: ?? mild hydronephrosis Ventriculomegaly: ??no Nuchal fold: ?? normal Echogenic bowel: ?? no Pyelectasis: ?? no Short femur: ?? no Include: ?? short humerus Include: ?? nasal bone Short humerus: no Nasal bone: ?present Display risk: ??Risk at time of screening Background risk at time of screening ?? 1,320 Background risk at term ?1,536 Adjusted risk at time of screening 3,565 Adjusted risk at term ??4,150 Other: She has had normal results on a cell-free DNA in maternal serum test. Maternal Structures Uterus / Cervix Uterus: ?Appears normal Cervix: ?Appears normal Ovaries / Tubes / Adnexa Rt ovary: ??Visualized, normal appearance Rt ovary D1 ?2.3 cm Rt ovary D2 ?2.9 cm Rt ovary D3 ?1.3 cm Rt ovary mean ??2.2 cm Rt ovary vol ?? 4.5 cm cubed Lt ovary: ??Visualized, normal appearance Lt ovary D1 ?2.4 cm Lt ovary D2 ?2.2 cm Lt ovary D3 ?1.0 cm Lt ovary mean ??1.9 cm Lt ovary vol ?? 2.7 cm cubed Method ======== Transabdominal ultrasound examination, Voluson E10. View: Sufficient. Impression [id number] Obstetrical ultrasound with and maternal evaluation, including detailed anatomic examination This is a russell gestation. Biometry is consistent with menstrual dating. Anatomy appears normal as noted above; however, ultrasound cannot detect all anomalies. Two echogenic intracardiac foci are noted. As per the [facility] guidelines, the following were evaluated and were normal: the cerebellum (including lobes and vermis), facial profile, the chest (including examination for masses, effusion, integrity of both sides of the diaphragm and lung parenchyma), abdomen for ascites, 12-long bones with normal architecture/position of limbs, hands and feet, placental insertion site of the umbilical cord and placenta for masses. The amniotic fluid volume is normal. There is trunk and extremity movement noted. In the presence of normal cell-free DNA testing, isolated EIFs are considered inconsequential. Follow-up Follow-up as clinically indicated. 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 History ======= General History Height 168 cm Height (ft) 5 ft Height (in) 6 in Previous Outcomes 1 Para 0 Maternal Assessment Height 168 cm Height (ft) 5 ft Height (in) 6 in Physical Exam Initial weight 69 kg Initial weight (lb) 153 lb Initial BMI 24.70 kg/m? Number of fetuses: 1. Dating ======= Method of dating: based on the LMP LMP on: 06/24/2018 GA by LMP 20 w + 6 d NORA by LMP : 03/31/2019 Stated Dating on: 09/16/2018 GA at stated dating date 11 w + 3 d GA by stated dating 20 w + 2 d NORA by stated datin04/04/2019 Ultrasound examination on: 11/17/2018 GA by U/S based upon: AC, BPD, Femur, HC GA by U/S 20 w + 6 d NORA by U/S: 03/31/2019 Assigned: Dating performed on 11/17/2018 Based on the LMP Assigned GA 20 w + 6 d Assigned NORA: 03/31/2019 General Evaluation Cardiac activity: Present. FHR 139 bpm. movements: visualized. Presentation: cephalic. Placenta: anterior. Umbilical cord: Cord vessels: 3 vessel cord. Cord insertion: placental insertion: normal. Amniotic fluid: Amount of AF: normal. Biometry Biometry BPD 51.1 mm 74% 21w 3d Hadlock OFD 62.7 mm 70% 21w 3d Linda HC 181.8 mm 41% 20w 4d [place] AC 154.7 mm 36% 20w 5d Hadlock Femur 33.8 mm 54% 20w 6d Linda Cerebellum tr 22.3 mm 65% 21w 5d Panda CM 5.4 mm 57% Nicolaides Nuchal fold 3.67 mm Humerus 30.8 mm 23% 20w 1d Linda EFW 368 g Calculated by: Hadlock (RSS-RS-NO-FL) EFW (lb) 0 lb EFW (oz) 13 oz Cephalic index 0.81 79% Nicolaides HC / AC 1.18 64% Hadlock FL / BPD 0.66 7% Hadlock FL / AC 0.22 39% Hadlock FHR 139 bpm Head / Face / Neck Railcar Switcher 6.3 mm Nasal bone 7.6 mm Extremities / Bony Struc Radius 27.1 mm 25% Chitty Ulna 28.9 mm 29% 20w 6d Linda Tibia 27.6 mm 21% 20w 0d Linda Fibula 27.6 mm 24% 19w 6d Linda Foot 33.4 mm 24% Chitty Anatomy Cranium: normal Lateral ventricles: normal Choroid plexus: normal Midline falx: normal Cavum septi pellucidi: normal Cerebellum: normal Cisterna magna: normal Parenchyma: normal Cerebellar lobes: normal Vermis: normal Neck: normal Nuchal fold: normal Lips: normal Profile: normal Nose: normal Maxilla: normal Mandible: normal 4-chamber view: normal RVOT: normal LVOT: normal 4-chamber view: bilateral echogenic foci. Situs: normal Aortic arch: normal SVC: normal IVC: normal 3-vessel view: normal 3-[id number]-emnhghv view: normal Rt lung: normal Lt lung: normal Diaphragm: normal Cord insertion: normal Stomach: normal Bladder: normal Genitals: normal Abdom. wall: normal Rt kidney: normal Lt kidney: normal Liver: normal Cervical spine: normal Thoracic spine: normal Lumbar spine: normal Sacral spine: normal Skeleton: normal Arms: normal Legs: normal Rt arm: normal Lt arm: normal Rt hand: normal Lt hand: normal Rt leg: normal Lt leg: normal Rt foot: normal Lt foot: normal Gender: male Wants to know gender: yes Aneuploidy Screening Age 18 yrs Echogenic focus: no Include: intracardiac echogenic focus Include: ventriculomegaly Include: nuchal fold Include: echogenic bowel Include: mild hydronephrosis Ventriculomegaly: no Nuchal fold: normal Echogenic bowel: no Pyelectasis: no Short femur: no Include: short humerus Include: nasal bone Short humerus: no Nasal bone: present Display risk: Risk at time of screening Background risk at time of screening 1,320 Background risk at term 1,536 Adjusted risk at time of screening 3,565 Adjusted risk at term 4,150 Other: She has had normal results on a cell-free DNA in maternal serum test. Maternal Structures Uterus / Cervix Uterus: Appears normal Cervix: Appears normal Ovaries / Tubes / Adnexa Rt ovary: Visualized, normal appearance Rt ovary D1 2.3 cm Rt ovary D2 2.9 cm Rt ovary D3 1.3 cm Rt ovary mean 2.2 cm Rt ovary vol 4.5 cm cubed Lt ovary: Visualized, normal appearance Lt ovary D1 2.4 cm Lt ovary D2 2.2 cm Lt ovary D3 1.0 cm Lt ovary mean 1.9 cm Lt ovary vol 2.7 cm cubed Method ======== Transabdominal ultrasound examination, [place] E10. View: Sufficient. Impression [id number] Obstetrical ultrasound with and maternal evaluation, including detailed anatomic examination This is a russell gestation. Biometry is consistent with menstrual dating. Anatomy appears normal as noted above; however, ultrasound cannot detect all anomalies. Two echogenic intracardiac foci are noted. As per the [facility] guidelines, the following were evaluated and were normal: the cerebellum (including lobes and vermis), facial profile, the chest (including examination for masses, effusion, integrity of both sides of the diaphragm and lung parenchyma), abdomen for ascites, 12-long bones with normal architecture/position of limbs, hands and feet, placental insertion site of the umbilical cord and placenta for masses. The amniotic fluid volume is normal. There is trunk and extremity movement noted. In the presence of normal cell-free DNA testing, isolated EIFs are considered inconsequential. Follow-up Follow-up as clinically indicated. DATE OF SERVICE: 11/17/2018 [facility] documented in this encounter Visit Diagnoses Not on filedocumented in this encounter Care Teams Financial Institution Vice President Relationship Specialty Start Date End Date Unknown, Provider, PCP - General 10/19/18 documented as of this encounter
--- OUTSIDE RECORDS SUMMARY | 2023-12-24 20:45 | XMS_ITS | Encounter Summary ---
Author Organization [facility] Address [address] [place] [address] Care Team Providers Care Gin Feeder Name Role Phone Unknown, Provider Primary Care Provider Encounter Details Date Type Department Care Team (Late st Contact Info) Description 11/25/2018 Results Only Imaging [facility] [phone] Nicole Dalton, [facility] [address] [facility] [address] [place] [address] Social History Tobacco Use Types [...] Procedure Name Priority Date/Time Associated Diagnosis Comments [facility] ECHOCARDIOGRAM (PEDI CARD) 11/25/2018 14:20 EDT documented in this encounter Results * [facility] ECHOCARDIOGRAM (PEDI CARD) (11/25/2018 14:20 EDT) Anatomical Region Laterality Modality Other 11/25/2018 14:2 0 EDT Narrative 11/25/2018 15:45 EDT Pediatric Cardiology [address] [place] [address] Date of study: 11/25/2018 Transabdominal Echocardiography Complete 2D, complete spectral Doppler, and color Doppler *STUDY CONCLUSIONS* Summary: - echocardiogram at 22 weeks gestation. - Normal chamber size and function. - Normal arterial and venous connections. - Normal Doppler study. - No arrhythmias noted during the exam. Normal 1:1 AV conduction with ?? HR 127 bpm. - No evidence of hydrops. - The results of the study, its limitations and the limitations of ??echocardiography in general were reviewed. The inability to diagnose ??patent ductus arteriosus, some atrial defects, ventricular septal ??defects and coarctation was discussed. Further echocardiography ??is not recommended unless new concerns arise. *PATIENT PRESENTATION* Age: ?18yr S/D Pressure: Location: Facility: ? [facility] Attending: ?Ramona Zepeda MD Referring: ?Nicole Malloy Performing: ?? Ramona Zepeda MD Ordering: ? Nicole Malloy Test start time: ??02:40 PM. Test stop time: ??03:05 PM. *PROCEDURE DATA* Procedure information: ??Pertinent images and digital data are archived for permanent storage and are available for subsequent review. ??Study status: ??Routine. Transabdominal echocardiography. ??Complete 2D, complete spectral Doppler, and color Doppler. ??Transabdominal echocardiography for congenital heart disease evaluation. ??: 1. ??Parity: ?0. ??Expected delivery date: ?03/31/2019. ??Gestational age: ?22wk. ??Study completion: ??The patient tolerated the procedure well. 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 *CARDIAC ANATOMY* DESCRIPTION Normal Doppler pattern of the ductus venosus, umbilical artery, and vein VEINS AND ATRIA Atrial septum: ??There is a patent foramen ovale. There is a mtwjb-gj-usps shunt. Left atrium: ??The atrium is normal in size. Right atrium: ??The atrium is normal in size. Systemic veins: ??Normal systemic venous drainage. Pulmonary veins: ??At least one pulmonary vein is seen entering the left atrium from each side. A-V CANAL Tricuspid valve: ??The annulus is normal-sized. ?There is normal biphasic inflow spectral Doppler. There is trivial regurgitation. Mitral valve: ??The annulus is normal-sized. ?There is normal biphasic inflow spectral Doppler. There is no regurgitation. VENTRICLES Right ventricle: ??The cavity size is normal. A small echogenic focus is present. Systolic function is qualitatively normal. Ventricular septum: ?? No evidence for a significant ventricular septal defect. Left ventricle: ??The cavity size is normal. A small echogenic focus is seen in the left ventricle associated with a papillary muscle. There is normal mitral valve function. Systolic function is qualitatively normal. CONOTRUNCUS Aortic valve: ? Transvalvular velocity is within the normal range. There is no regurgitation. Pulmonary valve: ?Transvalvular velocity is within the normal range. There is no regurgitation. GREAT ARTERIES Aorta: ?? Normal unobstructed left-sided aortic arch. Pulmonary arteries: ?? The proximal branch pulmonary arteries are normal. Systemic-pulmonary shunts: Patent ductus arteriosus. Shunt flow is right to left. PERICARDIUM There is no significant pericardial effusion. *MEASUREMENT TABLES* ? Value ?Reference ?? Z TrV annulus ? 0.55 ??cm 0.44 - 0.71 -0.3 MiV annulus ? 0.51 ??cm 0.43 - 0.68 -0.7 Legend: (L) ??and ??(H) ??efraín values outside specified reference range. I have personally reviewed the images and have reviewed and edited the reported findings. Electronically signed by Ramona Zepeda MD 11/25/2018 15:45 Procedure Note Ramona Zepeda MD, MD - 11/25/2018 Pediatric Cardiology [address] [place] [address] Date of study: 11/25/2018 Transabdominal Echocardiography Complete 2D, complete spectral Doppler, and color Doppler *STUDY CONCLUSIONS* Summary: - echocardiogram at 22 weeks gestation. - Normal chamber size and function. - Normal arterial and venous connections. - Normal Doppler study. - No arrhythmias noted during the exam. Normal 1:1 AV conduction with HR 127 bpm. - No evidence of hydrops. - The results of the study, its limitations and the limitations of echocardiography in general were reviewed. The inability to diagnose patent ductus arteriosus, some atrial defects, ventricular septal defects and coarctation was discussed. Further echocardiography is not recommended unless new concerns arise. *PATIENT PRESENTATION* Age: 18yr S/D Pressure: Location: Facility: [facility] Attending: Ramona Zepeda MD Referring: Nicole Malloy Performing: Ramona Zepeda MD Ordering: Nicole Malloy Test start time: 02:40 PM. Test stop time: 03:05 PM. *PROCEDURE DATA* Procedure information: Pertinent images and digital data are archived for permanent storage and are available for subsequent review. Study status: Routine. Transabdominal echocardiography. Complete 2D, complete spectral Doppler, and color Doppler. Transabdominal echocardiography for congenital heart disease evaluation. : 1. Parity: 0. Expected delivery date: 03/31/2019. Gestational age: 22wk. Study completion: The patient tolerated the procedure well. 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 *CARDIAC ANATOMY* DESCRIPTION Normal Doppler pattern of the ductus venosus, umbilical artery, and vein VEINS AND ATRIA Atrial septum: There is a patent foramen ovale. There is a zfpgj-so-aexi shunt. Left atrium: The atrium is normal in size. Right atrium: The atrium is normal in size. Systemic veins: Normal systemic venous drainage. Pulmonary veins: At least one pulmonary vein is seen entering the left atrium from each side. A-V CANAL Tricuspid valve: The annulus is normal-sized. There is normal biphasic inflow spectral Doppler. There is trivial regurgitation. Mitral valve: The annulus is normal-sized. There is normal biphasic inflow spectral Doppler. There is no regurgitation. VENTRICLES Right ventricle: The cavity size is normal. A small echogenic focus is present. Systolic function is qualitatively normal. Ventricular septum: No evidence for a significant ventricular septal defect. Left ventricle: The cavity size is normal. A small echogenic focus is seen in the left ventricle associated with a papillary muscle. There is normal mitral valve function. Systolic function is qualitatively normal. CONOTRUNCUS Aortic valve: Transvalvular velocity is within the normal range. There is no regurgitation. Pulmonary valve: Transvalvular velocity is within the normal range. There is no regurgitation. GREAT ARTERIES Aorta: Normal unobstructed left-sided aortic arch. Pulmonary arteries: The proximal branch pulmonary arteries are normal. Systemic-pulmonary shunts: Patent ductus arteriosus. Shunt flow is right to left. PERICARDIUM There is no significant pericardial effusion. *MEASUREMENT TABLES* Value Reference Z TrV annulus 0.55 cm 0.44 - 0.71 -0.3 MiV annulus 0.51 cm 0.43 - 0.68 -0.7 Legend: (L) and (H) efarín values outside specified reference range. I have personally reviewed the images and have reviewed and edited the reported findings. Electronically signed by Ramona Zepeda MD 11/25/2018 15:45 Nicole Dalton CNM CARDIAC ECHO OR DERABLES documented in this encounter Visit Diagnoses Not on filedocumented in this encounter Care Teams Gin Feeder Relationship Specialty Start Date End Date Unknown, Provider, PCP - General 10/19/18 documented as of this encounter
--- OUTSIDE RECORDS SUMMARY | 2023-12-24 20:45 | XMS_ITS ---
Author Organization Unknown Address [address] [place] [address] [phone] Phone Care Team Providers Care Adjunct Teacher Name Role Phone KORI GUTIERREZ Registered Nurse Unavailable LAURA South Attending Unavailable DEACON [facility] Unavailable UNLISTED PROVIDER - REQUESTED Xhandoff Un available Results CBC W/ DIFFERENTIAL* - Colle ct Date/Time: 07/13/2021 14:00 [facility] ID: [id number] [address] [place], [place], [address] LOINC: 44367-8 Test Value Unit Reference Range Code Code System Flag WBC 29.99 th/cmm L=5.00 H=10.00 6690-2 LOINC HH NEUT % 93.1 % L=40.0 H=80.0 H LYMPH % 2.1 % L=10.0 H=50.0 L MONO % 3.7 % L=2.0 H=12.0 42328-1 LOINC EOS % 0.0 % L=0.0 H=8.0 BASO % 0.2 % L=0.0 H=3.0 IG % 0.9 % L=0.0 H=1.1 2514-8 LOINC NRBC % 0.0 % L=0.0 H=0.0 00547-3 LOINC NEUT abs count 27.9 th/cmm L=1.6 H=8.4 751-8 LOINC H LYMPH abs count 0.6 th/cmm L=1.5 H=4.0 731-0 LOINC L MONO abs count 1.1 th/cmm L=0.2 H=1.0 742-7 LOINC H EOS abs count 0.0 th/cmm L=0.0 H=0.5 711-2 LOINC BASO abs count 0.1 th/cmm L=0.0 H=0.2 704-7 LOINC IG abs count 0.3 th/cmm L=0.0 H=0.1 18981-0 LOINC H NRBC abs count 0.0 mil/cmm L=0.0 H=0.0 72074-6 LOINC RBC 5.08 mil/cmm L=3.90 H=5.40 789-8 LOINC HEMOGLOBIN 15.3 gm/dL L=12.0 H=16.0 718-7 LOINC HEMATOCRIT 46 % L=37 H=47 4544-3 LOINC MCV 90 fL L=82 H=92 787-2 LOINC MCH 30.1 pg L=27.0 H=31.0 785-6 LOINC MCHC 33.6 % L=32.0 H=36.0 786-4 LOINC RDW-SD 41.6 fL L=39.0 H=49.0 788-0 LOINC PLATELET COUNT 179 th/cmm L=150 H=450 777-3 LOINC BANDS % 7 METAS % 1 Vaccuol neutr 1+ LIPASE* - Collect Date/Time: 07/13/2021 14:00 [facility] ID: [id number] [address] [place] [address], [id number] LOINC: 3040-3 Test Value Unit Reference Range Code Code System Flag LIPASE 28 U/L L=73 H=393 L COMPREHENSIVE METABOLIC PANE L (CMP) - Collect Date/Time: 07/13/2021 14:00 [facility] ID: [id number] [address] [place] [address], [address] LOINC: 32242-8 Test Value Unit Reference Range Code Code System Flag GLUCOSE 124 mg/dL L=70 H=116 2345-7 LOINC H BUN 5 mg/dL L=6 H=25 3094-0 LOINC L CREATININE 0.89 mg/dL L=0.51 H=0.95 2160-0 LOINC SODIUM SERUM 146 mmol/L L=136 H=145 2951-2 LOINC H POTASSIUM SERUM 3.3 mmol/L L=3.4 H=5.2 2823-3 LOINC L CHLORIDE SERUM 107 mmol/L L=96 H=110 2075-0 LOINC CARBON DIOXIDE (CO2) 22 mmol/L L=22 H=34 2028-9 LOINC ANION GAP 17.0 mmol/L 24649-9 LOINC CALCIUM SERUM 8.5 mg/dL L=8.2 H=10.2 13595-2 LOINC BILIRUBIN TOTAL 0.7 mg/dL L=0.0 H=1.3 1975-2 LOINC ALK. PHOS. 69 U/L L=46 H=116 6768-6 LOINC SGOT (AST) 20 U/L L=15 H=37 1920-8 LOINC SGPT (ALT) 17 U/L L=12 H=78 1742-6 LOINC TOTAL PROTEIN 7.9 gm/dL L=6.0 H=8.0 2885-2 LOINC ALBUMIN 4.7 gm/dL L=3.4 H=5.0 1751-7 LOINC AGE 21 years eGFR (non-Afr.Amer.) 79 mL/min 18561-8 LOINC eGFR (Afr-Montserratian) 96 mL/min 47861-1 LOINC Social History Type Status Start Date End Date Code Code Syst em Smoking History Never smoker (Never Smoked) 950668255 SNOMED CT Smoking History Current every day smoker 818270198 SNOMED CT Sex Female Vital Signs Vital Sign Value Unit Ches[place] Value Ches[place] Unit Date/Time Recent/Initial? Code Code System Body Mass Index 23.49 kg/m2 07/13/2021 12:54 Initial 91887 -5 [facility] Systolic Blood Pressure 142 mm[Hg] 07/13/2021 15:23 Most Recent 8480- 6 [facility] Diastolic Blood Pressure 82 mm[Hg] 07/13/2021 15:23 Most Recent 8462- 4 [facility] Systolic Blood Pressure 145 mm[Hg] 07/13/2021 13:00 Initial 8480- 6 [facility] Diastolic Blood Pressure 85 mm[Hg] 07/13/2021 13:00 Initial 8462- 4 [facility] Body Surface Area 1.79 m2 07/13/2021 12:54 Initial 3140- 1 LOINC Height 170.180 0 cm 67.00 in 07/13/2021 12:54 Initial 8302- 2 LOINC O2 Saturation 98 % 2021 15:23 Most Recent 99861 -5 LOINC O2 Saturation 97 % 2021 13:00 Initial 99881 -5 LOINC Pulse 72.0 /min 07/13/2021 15:23 Most Recent 8867- 4 LOINC Pulse 78.0 /min 07/13/2021 13:00 Initial 8867- 4 LOINC Respiration 16 /min 07/13/19 15:23 Most Recent 9279- 1 LOINC Respiration 20 /min 07/13/19 13:00 Initial 9279- 1 LOINC Weight 68.04 kg 150.00 lbs 07/13/2021 12:54 Initial 44363 -7 LOINC Medications Medication Start Date End Date Route Frequency Dose Code Code System Medication Instructions Home Meds Sertraline 50MG Oral Tablet 06/21/2020 07/13/2021 ORAL DAILY 50 MILLIGRAMS 071599 RxNorm TAKE 50 MILLIGRAMS ORAL DAILY Assessment You had the following problems:ABDOMINAL PAINVOMITINGLEUKOCYTOSIS Hospital Discharge Instructions Should you have any questions prior to discharge, please contact a member of your healthcare team. If you have left the hospital and have any questions, please contact your primary care physician. Reason For Referral No Data Found Problems Problem Start Date Resolved Date Status Code Code System ABDOMINAL PAIN active 20358769 SNOME D-CT VOMITING active 223325024 SNOMED-CT LEUKOCYTOSIS active 974283376 SNOMED- CT Allergies and Adverse Reactions Allergy Substance Reaction Severity Start Date Concern Status Co de Code System No Known Drug Allergies Active 287966516 SNOMED-CT Plan of Treatment No Data Found Encounters Encounter Diagnosis Start Date Code Code Sys tem Nausea with vomiting, unspecified 07/13/2021 SNOMED-CT Personal Care Team Section Performer Name Performer Role Active Date Inactive Da bessie
--- OUTSIDE RECORDS SUMMARY | 2023-12-24 20:45 | XMS_ITS | Clinical Summary ---
Author Organization [facility] Address [address] [place] [address] Care Team Providers Care Dispatcher Clerk Name Role Phone Unknown, Provider Primary Care Provider [phone] Allergies No known active allergies Medications No known medications Active Problems Patient Care Coordination No te Formatting of this note migh t be different from the original. [employer] Problem Noted Date Diagnosed Date [...] to respiratory infections and stridor Aortopexy at [facility] at 5 mos of age (Jun 1999)--thoracotomy, removed part of thymus, pexed aorta anteriorly and leftward to chest wall to relieve tracheal compression Normal TTE in 2013, no issues since infancy Recommended detailed US and echo Otherwise routine care, plans delivery at [facility] chest pain 09/28/2012 Surgical History Surgery Date Site/Laterality Comments AORTA SURGERY 1999 aortopexy second to abnormal origin of innominate artery BRONCHOSCOPY 1999 Medical History Medical History Date Comments Congenital malposition of innominate artery Social History Tobacco Use Types Packs/Day Years [...] on file Sexual Orientation Not on file Obstetrics History Para Term AB IAB SAB Ectopic Multiple Livin g Live Births 1 Date Outcome GA Total Labor Labor//3rd Weight Sex Type Anes PTL Ely A1 A5 Name Clin Last Filed Vital Signs Vital Sign Reading [...] 29.06 03/21/2019 1454 EDT Plan of Treatment Health Maintenance Due Date Last Done Comments Hepatitis C Screen 1999 Hepatitis B Vaccine (1 of 3 - 19+ 3-dose series) 02/24 COVID-19 Vaccine (2022-24 season) 2023 Care Teams Dispatcher Clerk Relationship Specialty Start Date End Date Unknown, Provider, PCP - General 10/19/18
--- OUTSIDE RECORDS SUMMARY | 2023-12-24 20:45 | XMS_ITS | Encounter Summary ---
Author Organization [facility] Address [address] [place] [address] Care Team Providers Care Staple Processing Machine Operator Name Role Phone Unknown, Provider Primary Care Provider Encounter Details Date Type Department Care Team (Late st Contact Info) Description 03/21/2019 Phlebotomy Only [facility] [address] [place] [address] Bagel Maker, Outpatient Leukocytosis, unspecified type (Primary Dx) Social History Tobacco Use Types Packs/Day Years [...] Procedure Name Priority Date/Time Associated Diagnosis Comments COMPLETE BLOOD COUNT AND DIFFERENTIAL Routine 03/21/2019 16:04 EDT Leukocytosis, unspecified type ALT Routine 03/21/2019 16:04 EDT Leukocytosis, unspecified type AST Routine 03/21/2019 16:04 EDT Leukocytosis, unspecified type FOLATE Routine 03/21/2019 16:04 EDT Leukocytosis, unspecified type FERRITIN Routine 03/21/2019 16:04 EDT Leukocytosis, unspecified type VITAMIN B12 Routine 03/21/2019 16:04 EDT Leukocytosis, unspecified type documented in this encounter Results * (ABNORMAL) COMPLETE BLOOD COUNT AND DIFFERENTIAL (03/21/2019 16:04 EDT) WBC 17.67(H) 4.0 - 12.4 K/cmm 03/21/2019 16:36 [facility] RBC 3.72(L) 3.86 - 5.04 M/cmm 03/21/2019 16:36 [facility] Hemoglobin 11.6 11.6 - 15.2 gm/dl 03/21/2019 16:36 [facility] HCT 34.3(L) 34.9 - 44.4 % 03/21/2019 16:36 [facility] MCV 92 81 - 98 fl 03/21/2019 16:36 [facility] MCH 31.2 26.7 - 33.3 pg 03/21/2019 16:36 [facility] MCHC 33.8 32.1 - 35.9 gm/dl 03/21/2019 16:36 [facility] RDW-CV 11.9 <14.7 % 03/21/2019 16:36 [facility] RDW-SD 40.2 <50.4 fl 03/21/2019 16:36 [facility] PLT 157 141 - 377 K/cmm 03/21/2019 16:36 [facility] MPV 12.9(H) 9.5 - 12.7 fl 03/21/2019 16:36 [facility] % Neutrophils 78.8 % 03/21/2019 16:36 [facility] % Lymphocytes 11.3 % 03/21/2019 16:36 [facility] % Monocytes 8.0 % 03/21/2019 16:36 [facility] % Eosinophils 0.8 % 03/21/2019 16:36 [facility] % Basophils 0.3 % 03/21/2019 16:36 [facility] % Immature Grans 0.8 % 03/21/2019 16:36 [facility] ABS Neutrophils 13.92(H) 2.20 - 8.85 K/cmm 03/21/2019 16:36 EDT [facility] ABS Lymphs 2.00 1.09 - 3.30 K/cmm 03/21/2019 16:36 EDT [facility] ABS Monocytes 1.42(H) 0.1 - 0.8 K/cmm 03/21/2019 16:36 EDT [facility] ABS Eosinophils 0.14 0.03 - 0.61 K/cmm 03/21/2019 16:36 EDT [facility] ABS Basophils 0.05 0.01 - 0.11 K/cmm 03/21/2019 16:36 T [facility] ABS Immature Grans 0.14(H) 0 - 0.06 K/cmm 03/21/2019 16:36 EDT [facility] Type of Diff: Automated 03/21/2019 16:36 EDT [facility] Blood specimen (specimen) BLOOD SPECIMEN / Unknown 03/21/2019 16:04 EDT 03/21/2019 16:22 EDT Rama Platt MD PACKAGES & DNA PROBE ORDERABLES Performing Organization Address City/[facility] Co de Phone Number [facility] [address] [place] [address] * (ABNORMAL) FERRITIN (03/21/2019 16:04 EDT) Ferritin 9(L) 10 - 291 ng/ml 03/22/2019 9:58 EDT [facility] Blood specimen (specimen) BLOOD SPECIMEN / Unknown 03/21/2019 16:04 EDT 03/21/2019 16:22 EDT Rama Platt MD CHEMISTRY & BLOOD GA S ORDERABLES Performing Organization Address [facility]/ZIP Co de Phone Number [facility] [address] [place] [address] * (ABNORMAL) VITAMIN B12 (03/21/2019 16:04 EDT) Vitamin B-12 150(L) 211 - 911 pg/ml 03/22/2019 9:58 EDT [facility] Blood specimen (specimen) BLOOD SPECIMEN / Unknown 03/21/2019 16:04 EDT 03/21/2019 16:22 EDT Rama Platt MD CHEMISTRY & BLOOD GA S ORDERABLES Performing Organization Address [facility] Co de Phone Number [facility] [address] [place] [address] * AST (03/21/2019 16:04 EDT) AST 28 15 - 46 U/L 03/21/2019 16:55 EDT [facility] Blood specimen (specimen) BLOOD SPECIMEN / Unknown 03/21/2019 16:04 EDT 03/21/2019 16:22 EDT Rama Platt MD CHEMISTRY & BLOOD GA S ORDERABLES Performing Organization Address [facility] de Phone Number [facility] [address] [place] [address] * ALT (03/21/2019 16:04 EDT) ALT 11 <34 U/L 03/21/2019 16:55 EDT [facility] Blood specimen (specimen) BLOOD SPECIMEN / Unknown 03/21/2019 16:04 EDT 03/21/2019 16:22 EDT Rama Platt MD CHEMISTRY & BLOOD GA S ORDERABLES Performing Organization Address [facility] de Phone Number [facility] [address] [place] [address] * FOLATE (03/21/2019 16:04 EDT) Folate 10.1 ng/ml 03/22/2019 9:58 EDT [facility] Comment: Deficient: ??Less than 3.4 ng/mL Indeterminate: ??3.4-5.4 ng/mL Normal: ??Greater than 5.4 ng/mL The results of this assay can be falsely elevated due to the consumption of Biotin. Blood specimen (specimen) BLOOD SPECIMEN / Unknown 03/21/2019 16:04 EDT 03/21/2019 16:22 EDT Rama Platt MD CHEMISTRY & BLOOD GA S ORDERABLES [facility] [address] [place] [address] documented in this encounter Visit Diagnoses Diagnosis Leukocytosis, unspecified type- Primary documented in this encounter Care Teams Staple Processing Machine Operator Relationship Specialty Start Date End Date Unknown, Provider, PCP - General 10/19/18 documented as of this encounter
--- OUTSIDE RECORDS SUMMARY | 2023-12-24 20:45 | XMS_ITS | Encounter Summary ---
Author Organization [facility] Address [address] [place] [address] Care Team Providers Care Christian Counselor Name Role Phone Unknown, Provider Primary Care Provider Encounter Details Date Type Department Care Team (Late st Contact Info) Description 06/13/2019 Lab Requisition [facility] Pathology & Laboratory Medicine - [address] [address] Unknown, Provider, Social History Tobacco Use Types Packs/Day Years [...] Procedure Name Priority Date/Time Associated Diagnosis Comments CHLAMYDIA/N. GONORRHOEAE AMPLIFIED NUCLEIC ACID Routine 06/13/2019 10:00 EST documented in this encounter Results * CHLAMYDIA/N. GONORRHOEAE AMPLIFIED RNA (06/13/2019 10:00 EST) Neisseria gonorrhoeae Result Negative Negative 06/14/2019 14:56 EST [facility] Chlamydia trachomatis Result Negative Negative 06/14/2019 14:56 EST [facility] Swab ENTIRE VAGINA / Unknown 06/13/2019 10:00 EST 06/13/2019 21:56 EST Provider Unknown MICROBIOLOGY - GENER AL ORDERABLES [facility] [address] [place] [address] documented in this encounter Visit Diagnoses Not on filedocumented in this encounter Care Teams Christian Counselor Relationship Specialty Start Date End Date Unknown, Provider, PCP - General 10/19/18 documented as of this encounter
--- OUTSIDE RECORDS SUMMARY | 2023-12-24 20:45 | XMS_ITS | Encounter Summary ---
Author Organization [facility] Address [address] [place] [address] Care Team Providers Care Re Examiner Name Role Phone Unavailable Primary Care Provider Unavailabl e Encounter Details Date Type Department Care Team (Late st Contact Info) Description 1999 11:07 EST - 1999 11:59 EST Hospital Encounter [address] [address] Joseph Villarreal MD [address] [facility] Level 4 [place] [phone] Discharge Disposition: Auto Discharge Social History Tobacco [...] Procedure Name Priority Date/Time Associated Diagnosis Comments MR ORBITS/FACE/NECK WO CONTRAST Routine 1999 17:25 EST documented in this encounter Results * MR ORBITS/FACE/NECK WO CONTRAST (1999 17:25 EST) Anatomical Region Laterality Modality Other 1999 17:2 5 EST Impressions 04/24/2009 8:29 EST IMPRESSION: 1) 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 2) Dr. Villarreal was informed of the study findings on 06/27/98. The attending radiologist has reviewed the images, and concurs with the findings described above. /sg Narrative 04/24/2009 8:29 EST ANTERIOR TRACHEAL COMPRESSION ON BRONCHOSCOPY 4 CM ABOVE JIMY ?? R... OR VASCULAR ANOMALY COMPRESSING ANTERIOR TRACHEA MRI, UPPER CHEST: 99, 1530 CLINICAL HISTORY: Stridor. Anterior tracheal compression on bronchoscopy 4 cm above the jimy. Rule out structural abnormality or vascular anomaly compressing the anterior trachea. TECHNIQUE: Axial, coronal and sagittal T1 weighted images through the upper chest were obtained. Furthermore, a sagittal T2 weighted sequence and axial fat-saturated T2 weighted sequence were obtained. FINDINGS: As seen best on series #6, sagittal view #7, there is compression of the trachea anteriorly by the innominate artery at the level of the thoracic inlet. No mass is identified. The thoracic aorta, SVC, brachiocephalic veins and great vessels are normal in configuration. There is a left-sided aortic arch. A small amount of dependent atelectasis is seen. Procedure Note Morgan Melara MD / Tuan Romo MD - 04/24/2009 ANTERIOR TRACHEAL COMPRESSION ON BRONCHOSCOPY 4 CM ABOVE JIMY R... OR VASCULAR ANOMALY COMPRESSING ANTERIOR TRACHEA MRI, UPPER CHEST: 99, 153 CLINICAL HISTORY: Stridor. Anterior tracheal compression on bronchoscopy 4 cm above the jimy. Rule out structural abnormality or vascular anomaly compressing the anterior trachea. TECHNIQUE: Axial, coronal and sagittal T1 weighted images through the upper chest were obtained. Furthermore, a sagittal T2 weighted sequence and axial fat-saturated T2 weighted sequence were obtained. FINDINGS: As seen best on series #6, sagittal view #7, there is compression of the trachea anteriorly by the innominate artery at the level of the thoracic inlet. No mass is identified. The thoracic aorta, SVC, brachiocephalic veins and great vessels are normal in configuration. There is a left-sided aortic arch. A small amount of dependent atelectasis is seen. 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 2) Dr. Villarreal was informed of the study findings on 06/27/98. The attending radiologist has reviewed the images, and concurs with the findings described above. /francis Joseph Villarreal MD IMG MRI TRU COLON documented in this encounter Visit Diagnoses Not on filedocumented in this encounter
--- OUTSIDE RECORDS SUMMARY | 2023-12-24 20:45 | XMS_ITS | Encounter Summary ---
Author Organization [facility] Address [address] [place] [address] Care Team Providers Care Corporate Sales Manager Name Role Phone Unknown, Provider Primary Care Provider Encounter Details Date Type Department Care Team (Late st Contact Info) Description 10/20/2018 16:30 EDT Initial consult [facility] Women's Services - [address] [id number] Chao Lo MD [address] [facility] [address] [facility], Level [address] [place] [phone] History of congenital vascular malformation (Primary Dx) Social History Tobacco Use Types Packs/Day Years Used Date Smoking Tobacco: Never Alcohol Use Standard Drinks/Week Comments Not Asked 0 (1 standard drink = 0.6 oz pur e alcohol) Comments Yes Sex and Gender Information Value Date Recorded Sex Assigned at Not on file Gender Identity Not on file Sexual Orientation Not on file documented as of this encounter Progress Notes * Chao Lo MD - 10/20/2018 1630 EDT This office note has been dictated. documented in this encounter Consult Notes * Chao Lo MD - 10/20/2018 0000 EDT [facility] OBST[facility] MID[facility]IFERY CONS[facility]ATION - 10/20/2018 This patient is referred by the [facility] Midwifery service. The indication for today's consultation is the patient's desire to discuss genetic testing. Ms Constantino comes to today's consultation accompanied by her boyfriend. She is a 18-year-old 1 who reports that the present has been uncomplicated. I saw her today after her consultation with Dr Annabella Goel of our maternal- medicine division.Dr Goel had already addressed the issue of recurrence risk of the vascular malformation that thispatient was born with. She now comes to me to discuss genetic testing in more general terms. We began by reviewing my agreement with the assessment made by Dr Goel. The risk of recurrence of the vascular malformation that affected the patient herself is low and the only testing that makes any sense in this context would be ultrasonography in the second trimester. In terms of other genetic testing, I reviewed Down syndrome screening with her and explained the options available in that regard. After hearing all about Down syndrome and screening for it and her age-related risk of about 1 in 1000, the patient concluded that she did not want to pursue any further testing. We then reviewed carrier testing for SMA and for cystic fibrosis. The patient was not familiar with either of these conditions and really not familiar with genetic risks in general. After an educational session where I explained the issues to her as best I could, her decision was to not pursue any testing. In summary, this is a 18-year-old 1, who was born with a vascular malformation that required a surgical intervention in lap checker. The recurrence risk of this is most likely quite low and the patient will have a second trimester ultrasound to evaluate cardiac anatomy as best as can bedone. She has declined Down syndrome screening and carrier screening for SMA and cystic fibrosis. This consultation was entirely devoted to discussion and planning and lasted 15 minutes. Chao Lo MD 10 50 AM - Chao Lo MD dn Dictation ID: [id number] cc: Lauren Henderson [facility], The [address], [address], [place] [address] documented in this encounter Plan of Treatment Not on file documented as of this encounter Visit Diagnoses Diagnosis History of congenital vascular malformation- Primary documented in this encounter Care Teams Corporate Sales Manager Relationship Specialty Start Date End Date Unknown, Provider, PCP - General 10/19/18 documented as of this encounter
--- OUTSIDE RECORDS SUMMARY | 2023-12-24 20:45 | XMS_ITS | Encounter Summary ---
Author Organization [facility] Address [address] [place] [address] Care Team Providers Care Coremaker Pipe Name Role Phone Raman Ayala STOCKROOM HELPER Primary Care Provide r Reason for Visit * Reason Comments Blurred Vision with headaches * Consult (Routine) - Closed Specialty Diagnoses / Procedures Referred By Ana telles Referred To Contact Diagnoses Vision loss Raman Ayala FNP [address] [place] [phone] Referral ID Status Reason Start Date Expiration Date Visits Re quested Visits Authorized [id number] Closed 1 1 Encounter Details Date Type Department Care Team (Late st Contact Info) Description 05/21/2015 8:15 EST Office Visit [facility] Ophthalmology [facility] [address] [place] [address] Jose Goodson MD [address] [place] [phone] Social History Tobacco Use Types Packs/Day Years Used Date Smoking Tobacco: Never Alcohol Use Standard Drinks/Week Comments Not Asked 0 (1 standard drink = 0.6 oz pur e alcohol) Sex and Gender Information Value Date Recorded Sex Assigned at Not on file Gender Identity Not on file Sexual Orientation Not on file documented as of this encounter Progress Notes * Jose Goodson MD - 05/21/2015 0920 EST Chief Complaint Patient presents with ??? Blurred Vision with headaches HPI The patient is a 15 y.o. female experiencing blurred vision and headaches. Having trouble focusing and eyes tearing. She reports that she got new glasses about 6 months ago. Right Eye: Tearing, Blurred Vision Left Eye: Blurred Vision, Tearing Visual Aid: Glasses Current Rx Age Location: Both eyes Pain: 0 - No pain Quality: Blurry Severity: Moderate Duration: Months Timing: Constant Lasts: Continuous Context: Pt has been having difficulty with focusing & blurry vision. Usually with concentration like looking at the board in school or with watching TV, clear for the first 5 mins or so then blurry. At times feels like her eyes are moving and is also getting headaches (temples) when trying to concentrate. She notices her eyes tear up alot when laying down. Modifying factors: heart surgery at 5 months old Associated Signs & Symptoms: Attestation: ROS Constitutional: NL ENT/Mouth NL Cardiovascular: NL Respiratory: NL Gastrointestinal: NL Genitourinary: NL Musculoskeletal: NL Integumentary: NL Neurologic: Headache Psychiatric: NL Endocrine: NL Hematologic: NL Immunologic: (seasonal allergies) Utilities Service Investigator: NL Exposures: None Other: Attestation: Base Eye Exam Visual Acuity (Snellen - Linear) Right Left Dist cc 20/25 -3 20/40 +1 Dist ph cc 20/30 Tonometry (Applanation, 9:06) Right Left Pressure 19 17 Pupils Dark Light APD Right 7 5 None Left 7 5 None Visual Johnson (Counting fingers) Right Left Result Full Full Extraocular Movement Right Left Result Full Full Neuro/Psych Oriented x3: Yes Mood/Affect: Normal Dilation Both eyes: 1.0% Mydriacyl, 2.5% Phenylephrine @ 9:07 Additional Tests Color Right Left Ishihara /12 12/12 Stereo Animals: 3/3 Circles: 7/9 Slit Lamp and Fundus Exam Slit Lamp Exam Right Left Lids/Lashes Normal Normal Conjunctiva/Sclera White and quiet, tr staining nasal White and quiet, tr staining nasal Cornea Clear Clear Anterior Chamber Deep and quiet Deep and quiet Iris Round and reactive Round and reactive Lens Clear Clear Fundus Exam Right Left Vitreous Normal Normal Disc spontaneous venous pulsation spontaneous venous pulsation C/D Ratio 0.2 0.2 Macula Normal Normal Vessels Normal Normal Periphery Normal Normal Refraction Wearing Rx Sphere Cylinder Bates Right -3.25 +2.50 005 Left -3.50 +2.25 178 Type: SVL Manifest Refraction (Auto) Sphere Cylinder Bates Dist Right -3.75 +2.75 180 20/40 Left -3.50 +2.00 18 20/30 Manifest Refraction #2 Sphere Cylinder Bates Dist Right -3.75 +2.75 005 20/25+2 Left -3.50 +2.00 175 20/20-1 Manifest Refraction Comments With blinking could see better Final Rx Sphere Cylinder Bates Right -3.75 +2.75 005 Left -3.50 +2.00 175 DIAGNOSTIC TESTS: IMPRESSION & PLAN: 1. Dry eye syndrome, both eyes -Discussed contributing factors -Recommend proactive use of artificial tears 3-4 times daily -Also recommend 20-20-20 rule when doing near tasks. 2. Myopic astigmatism -Discussed, may continue to increase with time. I have reviewed the patient's past medical, family, social and surgical history. I have also reviewed the patient's medications, allergies, and problem list. I performed my own HPI and have reviewed the tech's ROS as well. I completed this exam personally. Jose Goodson MD I am scribing for Jose Goodson MD, while he is personally performing the service. Stephany Grier Patient Education Topic: blurred vision Method: Verbal Taught to: Patient Barriers: None Outcomes: independent Signature: Jose Goodson MD documented in this encounter Plan of Treatment Not on file documented as of this encounter Visit Diagnoses Diagnosis Dry eye, bilateral- Primary Unspecified disorder of refraction documented in this encounter Eye Exam Visual Acuity (Snellen - Linear) Right eye Left eye Dist cc 20/25 -3 20/40 +1 Dist ph cc 20/30 Tonometry (Applanation, 9:06) Right eye Left eye Pressure 19 17 Pupils Dark Light APD Right eye 7 5 None Left eye 7 5 None Visual Johnson (Counting fingers) Right eye Left eye Full Full Extraocular Movement Right eye Left eye Full Full Neuro/Psych Oriented x3: Yes Mood/Affect: Normal Dilation Both eyes: 1.0% Mydriacyl, 2 .5% Phenylephrine @ 9:07 Color Right eye Left eye Ishihara 05/26 05/26 Stereo Animals: 3/3 Circles: 12/21 Slit Lamp Exam Right eye Left eye Lids/Lashes Normal Normal Conjunctiva/Sclera White and quiet, tr staining nasal White and quiet, tr staining nasal Cornea Clear Clear Anterior Chamber Deep and quiet Deep and quiet Iris Round and reactive Round and kaylyn ctive Lens Clear Clear Vitreous Normal Normal Fundus Exam Right eye Left eye Disc spontaneous venous pulsation spo ntaneous venous pulsation C/D Ratio 0.2 0.2 Macula Normal Normal Vessels Normal Normal Periphery Normal Normal Wearing Rx Sphere Cylinder Bates Right eye -3.25 +2.50 005 Left eye -3.50 +2.25 178 Type: SVL Manifest Refraction #1 (Auto) Sphere Cylinder Bates Dist VA Right eye -3.75 +2.75 180 20/40 Left eye -3.50 +2.00 18 20/30 Manifest Refraction #2 Sphere Cylinder Bates Dist VA Right eye -3.75 +2.75 005 20/25+2 Left eye -3.50 +2.00 175 20/20-1 Manifest Refraction Comments With blinking could see better Final Rx Sphere Cylinder Bates Right eye -3.75 +2.75 005 Left eye -3.50 +2.00 175 Care Teams Coremaker Pipe Relationship Specialty Start Date End Date Raman Ayala FNP PCP - General 11/17/14 10/18/18 documented as of this encounter
--- OUTSIDE RECORDS SUMMARY | 2023-12-24 20:45 | XMS_ITS | Encounter Summary ---
Author Organization [facility] Address [address] [place] [address] Care Team Providers Care Nuclear Medicine Chief Technologist Name Role Phone Unknown, Provider Primary Care Provider [phone] Reason for Visit * Reason Comments Advice Only Encounter Details Date Type Department Care Team (Late st Contact Info) Description 10/20/2018 14:30 EDT Initial consult [facility] Obstetrics & Midwifery - [address] [phone] Annabella Goel MD [address] [facility], Level [address] [place] [phone] History of congenital vascular malformation (Primary Dx) [...] Sign Reading Time Taken Comments Blood Pressure 104/64 10/20/2018 1444 EDT Pulse 88 10/20/2018 1444 EDT Temperature - - Respiratory Rate - - Oxygen Saturation 99% 10/20/2018 1444 EDT Inhaled Oxygen Concentration - - Weight 71.7 kg (158 lb) 10/20/2018 1444 EDT Height 172.7 cm (5' 8) 10/20/2018 1444 EDT Body Mass Index 24.02 10/20/2018 1444 EDT documented in this encounter Progress Notes * Annabella Goel MD - 10/20/2018 1430 EDT Dear Lauren Henderson: Thank you for asking us to see your patient, Shanice Constantino at the maternal- medicine clinic at [facility]. As you know, she is a 18-year-old 1, para 0 female withan intrauterine at 16 weeks 6 days gestation. Her estimated delivery date is 03/31/2019. 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 Her pertinent history is as follows: 1. Bovine trunk requiring aortopexy: Ms Constantino had surgery at 5 months of age at [facility] to relieve compression on her trachea. 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 She had stridor and respiratory infections in infancy,and a bronchoscopy revealed significant compression of the trachea from these aortic vessels. According to the operative report in June of 1999, she had a thoracotomy and aortopexy to move her aorta and branching vessels more anterior and leftward in her mediastinum. A portion of her thymus was also excised. Bronchoscopy following the aortopexy revealed a dramatic improvement in the caliber ofher trachea. Ms Constantino reports that following this surgery she subsequently had a healthy childhood. She did not have regular followup by a malter operator after infancy, although she did have an echocardiogram in 2013 after presenting with chest pain as a teenager. The echocardiogram at this time was normal. Ms Constantino reports normal exercise tolerance with no physical limitations throughout her lifetime. She denies any history of palpitations or other cardiac symptoms. Notably, she said that you noted a murmur on cardiac exam at her last visit. OTHER PAST MEDICAL HISTORY: 1. Frequent headaches. She reports she has had rather severe headaches 2 to 3 times per week. She has been taking lots of ibuprofen to try to treat these, but has found that daily marijuana use seemsto be most helpful. She has not ever tried a prophylactic medication to prevent headaches. PAST SURGICAL HISTORY: Aortopexy. MEDICATIONS: Ibuprofen p.r.n. ALLERGIES: No known drug allergies. SOCIAL HISTORY: She was previously a 1 pack per day smoker, but weaned down to about 1 cigarette per day in . She also endorses daily marijuana use--typically 3-4 hits per day. She drank alcohol prior to , but discontinued this with a positive test at 11 weeks gestation. 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 She lives in [place] with Abdon who is the father of the baby. They also have a roommate who is Abdon's cousin. They have 2 cats and 1 Spanish Rottweiler puppy. FAMILY HISTORY: She denies any history of cardiac abnormalities in any family members. She reports no history of problems, congenital malformations, or genetic syndromes. records reveal that her brother had a murmur in childhood, which resolved, but the patient was not aware of this. PHYSICAL EXAMINATION: Weight 158 pounds, blood pressure 104/64. General: A well-appearing female in no acute distress. Cardiovascular: Grade 1 holosystolic murmur heard best at the left upper sternal border, most consistent with a flow murmur of . Abdomen: Soft, gravid, nontender to palpation. heart tones present at 150 beats per minute. SUMMARY AND RECOMMENDATIONS: 1. 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 This is typicallyconsidered to be completely benign and is usually asymptomatic. The normal left aortic arch crossesover the left mainstem bronchus and typically gives rise to 3 vessels: (1) the innominate or brachiocephalic artery, which then bifurcates into the right common carotid and right subclavian artery, (2) the left common carotid artery, and (3) the left subclavian artery. With the bovine trunk variant, one common brachiocephalic trunk trifurcates into the right subclavian, right common carotid and left common carotid arteries and the left subclavian artery comes off the aorta separately. It is reassuring that on review of her operative report no significant surgery was performed on the heart or on the aorta; it seems as if it was just pexed forward in her chest to allow normal growth. Given her normal echocardiogram in 2013 and normal exercise tolerance, I expect her to tolerate completely well. Ms Constantino's cardiac exam today is normal. She does have an audible flow murmur, which is common in . I did encourage her to have a low threshold to call your office should she begin experiencing palpitations, chest pain, shortness of breath, or any other concerning cardiac symptoms. We discussed that this particular variation is typically considered benign. I attempted to see if other aortic arch abnormalities may be more common in the offspring of someone with this normal variant but cannot find this information. It seems reasonable to obtain a detailed ultrasound, which you have already scheduled here on November 17. Additionally, I think it would be reasonable to schedule a echo cardiogram around 24 weeks for further evaluation of the fetus. Otherwise, I do not think any alteration in care is necessary and I think Ms Constantino is quite safe to deliver at your hospital. You may want to consider third trimester consultation with anesthesia if you are concerned your anesthesiologists may be concerned with delivery there given her history of cardiac surgery. 2. Frequent headaches. I discussed with Ms Constantino that ibuprofen is not recommended in and that we would not recommend continuing this. She reports that you have recommended caffeine and I agree with this recommendation. We also discussed that magnesium oxide can be used for a prophylactic medication to prevent headaches, so it may be reasonable to start 400 mg of magnesium oxide daily for this. We discussed that daily marijuana use is not recommended and that in fact no marijuana use is considered safe in . We discussed that we do not have a conclusive data on anatomicabnormalities associated with marijuana use, but that certainly it is plausible that future neurodevelopmental function may be affected by maternal marijuana use. I encouraged her to use Tylenol as needed to abort headaches and continue to follow up with you for other suggestions for headache prophylaxis and treatment. At the conclusion of our discussion, the patient had no further questions. Thank you for allowing me to participate in the care of this nice patient. Please do not hesitate to call me if you have any questions regarding her care. Sincerely, Annabella Goel MD Maternal- Medicine I spent a total of 45 minutes in face to face time with this patient today and 45 minutes of that time was spent in counseling and coordination of care as described in the progress note. documented in this encounter Plan of Treatment Not on file documented as of this encounter Visit Diagnoses Diagnosis History of congenital vascular malformation- Primary documented in this encounter Care Teams Nuclear Medicine Chief Technologist Relationship Specialty Start Date End Date Unknown, Provider, PCP - General 10/19/18 documented as of this encounter
--- OUTSIDE RECORDS SUMMARY | 2023-12-24 20:46 | XMS_ITS ---
Author Organization Unknown Address [address] [place] [phone] Phone Care Team Providers Care Horticulture Superintendent Name Role Phone RIMAHAILEY HENRI BORDEN Attending Unavailable Results URINALYSIS ROUTINE - Collect Date/Time: 01/03/2021 15:43 [facility] ID: [id number] [address] [place], [place], [address] LOINC: Test Value Unit Reference Range Code Code System Flag COLLECTION MODE: NOT STATED Color YELLOW yellow 5778-6 LOINC Appearance HAZY clear 5767-9 LOINC Glucose urine NEGATIVE negative mg/dl 87626-8 LOINC Bilirubin NEGATIVE negative 5770-3 LOINC Ketones NEGATIVE negative mg/dl 2514-8 LOINC Spec gravity 1.020 1.003 - 1.030 5811-5 LOINC pH urine 7.0 5.0 - 7.0 2756-5 LOINC Protein NEGATIVE negative mg/dl 64460-0 LOINC Urobilinogen 0.2 <or= 1 EU/dl 60359-9 LOINC Nitrite NEGATIVE negative 5802-4 LOINC Blood SMALL negative 5794-3 LOINC A Leukocytes MODERATE negative 57123-2 LOINC A MICROSCOPIC* INDICATED WBCs 25-100 0-5 / hpf 11522-0 LOINC RBCs 0-5 0-5 / hpf 12434-2 LOINC Epith cells 0-5 0-5 / hpf 53915-2 LOINC Cell types squam+renal Crystals none none Bacteria minimal none Mucus present none 8247-9 LOINC Casts none none /lpf 51210-6 LOINC Other 78287-6 LOINC Social History Type Status Start Date End Date Code Code Syst em Smoking History Never smoker (Never Smoked) 956568499 SNOMED CT Sex Female Medications Medication Start Date End Date Route Frequency Dose Code Code System Medication Instructions Home Meds Sertraline 50MG Oral Tablet 06/21/2020 07/13/2021 ORAL DAILY 50 MILLIGRAMS 478247 RxNorm TAKE 50 MILLIGRAMS ORAL DAILY Assessment [...] Status Code Code System ABDOMINAL PAIN active 82238845 SNOME D-CT VOMITING active 260789778 SNOMED-CT LEUKOCYTOSIS active 114006935 SNOMED- CT Allergies and Adverse Reactions Allergy Substance Reaction Severity Start Date Concern Status Co de Code System No Known Drug Allergies Active 136246294 SNOMED-CT Plan of Treatment No Data Found Encounters Encounter Diagnosis Start Date Code Code Sys tem Dysuria 01/03/2021 32150565 SNOMED-CT Personal Care Team Section Performer Name Performer Role Active Date Inactive Jeramy la
--- OUTSIDE RECORDS SUMMARY | 2023-12-24 20:46 | XMS_ITS ---
Author Organization Unknown Address [address] [place] [phone] Phone Care Team Providers Care Music Specialist Name Role Phone CAREN OLYA Registered Nurse Unavailable LEXIS Jackman Attending Unavailable [facility] Unavailable UNLISTED PROVIDER - REQUESTED Primary Un available Results DRUG SCN 13 PANEL ([facility])* - Collect Date/Time: 07/18/2023 13:32 [facility] ID: [id number] [address] [place] [address], [phone] LOINC: 15171-6 Test Value Unit Reference Range Code Code System Flag CANNABINOIDS POSITIVE Cutoff = 50 ng/mL 05135-2 LOINC A PHENCYCLIDINE NEGATIVE Cutoff = 25 ng/mL 40793-2 LOINC COCAINE NEGATIVE Cutoff = 150 ng/mL 16935-6 LOINC METHAMPHETAMINES NEGATIVE Cutoff = 50 0 ng/mL 36587-0 LOINC OPIATES NEGATIVE Cutoff = 100 ng/mL 58196-3 LOINC AMPHETAMINES NEGATIVE Cutoff = 500 ng/mL 53080-9 LOINC BENZODIAZEPINES NEGATIVE Cutoff = 150 ng/mL 49518-9 LOINC TRICYCLIC ANTIDEP NEGATIVE Cutoff = 3 00 ng/mL 3533-7 LOINC METHADONE NEGATIVE Cutoff = 200 ng/mL 79208-8 LOINC BARBITURATES NEGATIVE Cutoff = 200 ng/mL 74456-0 LOINC OXYCODONE NEGATIVE Cutoff = 100 ng/mL 20392-7 LOINC BUPRENORPHINE NEGATIVE Cutoff = 10 mg/mL 3414-0 LOINC URINALYSIS WITH REFLEX CULT IF POSITIVE* - Collect Date/Time: 07/18/2023 13:32 [facility] ID: [id number] [address] [place] [address], [address] LOINC: 97749-4 Test Value Unit Reference Range Code Code System Flag COLLECTION MODE: CLEAN CATCH 25386-4 LOINC Color YELLOW yellow 5778-6 LOINC Appearance CLEAR clear 5767-9 LOINC Glucose urine NEGATIVE negative mg/dl 63372-2 LOINC Bilirubin NEGATIVE negative 5770-3 LOINC Ketones 15 negative mg/dl 2514-8 LOINC A Spec gravity 1.020 1.003 - 1.030 5811-5 LOINC pH urine 8.0 5.0 - 7.0 2756-5 LOINC A Protein 30 negative mg/dl 42497-1 LOINC A Urobilinogen 0.2 <or= 1 EU/dl 81075-9 LOINC Nitrite. NEGATIVE negative 5802-4 LOINC Blood SMALL negative 5794-3 LOINC A Leukocytes. TRACE negative A MICROSCOPIC INDICATED WBCs. 0-5 0-5 / hpf 85890-9 LOINC RBCs 0-5 0-5 / hpf 82951-3 LOINC Epith cells 5-10 0-5 / hpf 21199-0 LOINC Cell types squamous Crystals none none Bacteria minimal none Mucus present none 8247-9 LOINC Casts none none /lpf 62610-2 LOINC Other 88927-6 LOINC MAGNESIUM SERUM* - Collect D ate/Time: 07/18/2023 12:12 [facility] ID: [id number] [address] [place] [address], [address] LOINC: 01751-8 Test Value Unit Reference Range Code Code System Flag MAGNESIUM 1.6 mg/dL L=1.8 H=2.4 09626-1 LOINC L LIPASE* NEW - Collect Date/T dilcia: 07/18/2023 12:12 [facility] ID: [id number] [address] [place] [address], [phone] LOINC: 3040-3 Test Value Unit Reference Range Code Code System Flag LIPASE. 20 U/L L=16 H=77 TEST QUAL SERUM* - Collect Date/Time: 07/18/2023 12:12 [facility] ID: [id number] [address] [place], [place], [address] LOINC: 8-8 Test Value Unit Reference Range Code Code System Flag TEST NEGATIVE 2105-3 [facility] COMPREHENSIVE METABOLIC PANE L (CMP) - Collect Date/Time: 07/18/2023 12:12 [facility] ID: [id number] [address] [place], [place], [address] LOINC: 79322-6 Test Value Unit Reference Range Code Code System Flag GLUCOSE 154 mg/dL L=70 H=116 2345-7 LOINC H BUN 13 mg/dL L=6 H=25 3094-0 LOINC CREATININE 1.04 mg/dL L=0.51 H=0.95 2160-0 LOINC H SODIUM SERUM 140 mmol/L L=136 H=145 2951-2 LOINC POTASSIUM SERUM 3.3 mmol/L L=3.4 H=5.2 2823-3 LOINC L CHLORIDE SERUM 101 mmol/L L=96 H=110 2075-0 LOINC CARBON DIOXIDE (CO2) 24 mmol/L L=22 H=34 2028-9 LOINC ANION GAP 15.2 mmol/L 99537-0 LOINC CALCIUM SERUM 9.7 mg/dL L=8.2 H=10.2 37455-7 LOINC BILIRUBIN TOTAL 0.9 mg/dL L=0.0 H=1.3 1975-2 LOINC ALK. PHOS. 55 U/L L=46 H=116 6768-6 LOINC SGOT (AST) 20 U/L L=15 H=37 1920-8 LOINC SGPT (ALT) 18 U/L L=12 H=78 1742-6 LOINC TOTAL PROTEIN 7.6 gm/dL L=6.0 H=8.0 2885-2 LOINC ALBUMIN 4.4 gm/dL L=3.4 H=5.0 1751-7 LOINC AGE 23 years eGFR (non-Afr.Amer.) 65 mL/min 86805-7 [facility] eGFR (Afr-E[place]ian) 79 mL/min 04954-0 INC CBC W/ DIFFERENTIAL* - Colle ct Date/Time: 07/18/2023 12:12 [facility] ID: [id number] [address], [place], [phone] [facility]: 46452-0 Test Value Unit Reference Range Code Code System Flag WBC 32.17 th/cmm L=5.00 H=10.00 HH NEUT % 88.8 % L=40.0 H=80.0 H LYMPH % 2.7 % L=10.0 H=50.0 L MONO % 7.2 % L=2.0 H=12.0 EOS % 0.0 % L=0.0 H=8.0 BASO % 0.3 % L=0.0 H=3.0 IG % 1.0 % L=0.0 H=1.1 NRBC % 0.0 % L=0.0 H=0.0 NEUT abs count 28.5 th/cmm L=1.6 H=8.4 H LYMPH abs count 0.9 th/cmm L=1.5 H=4.0 L MONO abs count 2.3 th/cmm L=0.2 H=1.0 H EOS abs count 0.0 th/cmm L=0.0 H=0.5 BASO abs count 0.1 th/cmm L=0.0 H=0.2 IG abs count 0.3 th/cmm L=0.0 H=0.1 H NRBC abs count 0.0 mil/cmm L=0.0 H=0.0 RBC 4.79 mil/cmm L=3.90 H=5.40 HEMOGLOBIN 14.6 gm/dL L=12.0 H=16.0 HEMATOCRIT 43 % L=37 H=47 MCV 89 fL L=82 H=92 MCH 30.5 pg L=27.0 H=31.0 MCHC 34.1 % L=32.0 H=36.0 RDW-SD 39.7 fL L=39.0 H=49.0 PLATELET COUNT 251 th/cmm L=150 H=450 Toxic gran 1+ Vaccuol neutr 1+ CORRECTED CORRECTED Social History Type Status Start Date End Date Code Code Syst em Smoking History Never smoker (Never Smoked) 743074363 SNOMED CT Smoking History Current every day smoker 847487993 SNOMED CT Sex Female Vital Signs Vital Sign Value Unit Clarkia Value Clarkia Unit Date/Time Recent/Initial? Code Code System Body Mass Index 22.08 kg/m2 07/18/2023 10:26 Initial 86766 -5 LOINC Systolic Blood Pressure 131 mm[Hg] 07/18/2023 18:00 Most Recent 8480- 6 LOINC Diastolic Blood Pressure 86 mm[Hg] 07/18/2023 18:00 Most Recent 8462- 4 LOINC Systolic Blood Pressure 131 mm[Hg] 07/18/2023 10:26 Initial 8480- 6 LOINC Diastolic Blood Pressure 102 mm[Hg] 07/18/2023 10:26 Initial 8462- 4 LOINC Body Surface Area 1.74 m2 07/18/2023 10:26 Initial 3140- 1 LOINC Height 170.180 0 cm 67.00 in 07/18/2023 10:26 Initial 8302- 2 LOINC O2 Saturation 98 % 2023 18:00 Most Recent 82309 -5 LOINC O2 Saturation 100 % 2023 10:26 Initial 89329 -5 LOINC Pulse 66.0 /min 07/18/2023 18:00 Most Recent 8867- 4 LOINC Pulse 56.0 /min 07/18/2023 10:26 Initial 8867- 4 LOINC Respiration 14 /min 07/18/19 18:00 Most Recent 9279- 1 LOINC Respiration 16 /min 07/18/19 10:26 Initial 9279- 1 LOINC Temperature 35.0 Eugenia 95.0 F 07/18/19 10:26 Initial 8310- 5 LOINC Weight 63.96 kg 141.00 lbs 07/18/2023 10:26 Initial 13038 -7 LOINC Assessment You had the following problems:ABDOMINAL PAINVOMITINGLEUKOCYTOSIS Hospital Discharge Instructions Should you have any questions prior to discharge, please contact a member of your healthcare team. If you have left the hospital and have any questions, please contact your primary care physician. Reason For Referral No Data Found Problems Problem Start Date Resolved Date Status Code Code System ABDOMINAL PAIN active 61394781 SNOME D-CT VOMITING active 558730059 SNOMED-CT LEUKOCYTOSIS active 635592566 SNOMED- CT Allergies and Adverse Reactions Allergy Substance Reaction Severity Start Date Concern Status Co de Code System No Known Drug Allergies Active 293678385 SNOMED-CT Plan of Treatment No Data Found Encounters Encounter Diagnosis Start Date Code Code Sys tem Hypokalemia 07/18/2023 21827425 Consult A DoctorOMED-CT Personal Care Team Section Performer Name Performer Role Active Date Inactive Da bessie
[2023-12-28 12:24] LABS: GC Result Negative (Negative)
[2023-12-28 12:29] LABS: Specimen Description URINE
[2023-12-28 12:32] LABS: Chlamydia Result Positive (Negative)
--- NOTE | 2023-12-28 12:40 | NUR.NOTE ---
Accessed chart for chlamydia/GC results. Put in critical findings in worklist. GIven to Dr Dill. Nursing Note:
--- NOTE | 2023-12-28 12:56 | W.ED.FU ---
Date of service: 12/24/23 Follow Up Plan: Patient evaluated on December 23. Testing from that time is resulted and patient is positive for chlamydia. Gonorrhea negative. Attempted to contact the patient via the phone number listed in the chart, that this can straight to voicemail which is not set up. Certified letter has been arranged.
--- NOTE | 2023-12-28 13:12 | NUR.NOTE ---
Dr. Dill unable to reach patient. Letter sent to patient to return to ED with the lab results. Copy sent to Medical Records. Nursing Note:
== END 2023-12-24 20:44 | disposition home or self-care (01) ==
LOC: ER 20:44
PROVIDERS: Emergency Provider Student in an Organized Health Care Education/Training Program
DX: Z20.828 Contact with and (suspected) exposure to other viral communicable diseases
CPT/HCPCS: 87491; 87591; 99284; 99283